=== PATIENT | male | born 1975 | race Caucasian/White ===

== ENCOUNTER 2019-12-19 10:12 | Outpatient (CLI) | payer BC, SELFPAY ==
[2019-12-19 11:39] LABS: Alanine Aminotransferase 52 U/L (4-50); Albumin Level 4.2 g/dL (3.5-5.1); Alkaline Phosphatase 88 U/L (38-126); Aspartate Amino Transferase 35 U/L (17-59); Bilirubin,Total 0.6 mg/dL (0.2-1.3); Blood Urea Nitrogen 10 mg/dL (9-20); Calcium 9.7 mg/dL (8.4-10.2); Carbon Dioxide 32 mmol/L (22-30); Chloride 98 mmol/L (98-107); Cholesterol 193 mg/dL (0-200); Estimated Glomerular Filt Rate > 60; Glucose 93 mg/dL (75-110); HDL Direct 54 mg/dL; Potassium 4.5 mmol/L (3.4-5.0); Sodium 141 mmol/L (137-145); Triglycerides 73 mg/dL (<150)
[2019-12-19 11:50] LABS: LDL Cholesterol Direct 115 mg/dL
== END 2019-12-19 10:13 | disposition home or self-care (01) ==
PROVIDERS: PCP Internal Medicine; Visit Provider Nurse Practitioner
DX: E78.5 Hyperlipidemia, unspecified (principal)
CPT/HCPCS: 36415; 80053; 80061

== ENCOUNTER 2019-12-29 16:57 | Emergency (ER) | payer BC, SELFPAY ==
--- NOTE | ~2019-12-29 | XR_ITS ---
EXAMINATION: XR knee RT min 4V EXAM DATE: 12/29/2019 18:38 INDICATION: Sudden onset anterior swelling. TECHNIQUE: Right knee frontal, crosstable lateral, orthogonal oblique projections for interpretation . There is no prior study for comparison. FINDINGS: No evidence osteochondral defect or joint body in the right knee joint. There are no acut e fractures or dislocations identified. There is no subcutaneous gas. Large well-circumscribed stefano on of soft tissue or fluid density anterior to the tibial tuberosity and inferior half of the patella r tendon. Suspect that there is some intervening fat density insinuating within this. Given how well circumscribed this could be fluid within the infrapatellar bursa. Given the history provided most acu te blood products would explain sudden onset of this. Radiographically differential diagnosis include s other loculated fluid collection or abscess. Please clinically correlate. There are no radiopaque foreign bodies. IMPRESSION: Focal anterior ovoid soft tissue swelling of swelling, could be distended infrapatellar b ursal hematoma given appearance and the history provided. Please clinically correlate. Follow up as i ndicated. Reviewed, dictated and finalized at location A. LAY SCREEN FABRICATOR IMPRESSION: Focal anterior ovoid soft tissue swelling of swelling, could be dis tended infrapatellar bursal hematoma given appearance and the history provided. Please clinically correlate. Follow up as indicated.
[2019-12-29 17:39] VITALS: BP 116/74; PULSE 74; RESP 20; TEMP 36.9; O2SAT 99
--- NOTE | 2019-12-29 18:14 | ED.GENADULT ---
HPI - General Adult General Chief complaint: Extremity Problem,Nontraumatic Stated complaint: lump below r/knee Time Seen by Provider: 12/29/19 18:11 Source: patient and RN notes reviewed Mode of arrival: ambulatory Limitations: no limitations History of Present Illness HPI narrative: 44-year-old male presents with complains of pain and swelling below right anterior knee for 1 day. No treatment. No known injury. 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 Pain and swelling started approximately 1 hour after working per Anderson. No radiation of pain. No numbness or tingling, or bleeding. No blood thinners. No loss of mobility. Exacerbating factors consist of bending and straightening knee. No fever or chills. Denies nausea, vomiting, and abdominal pain. Remains active. Some parts of this dictation were generated by voice recognition software and may contain typographical and/or grammatical inaccuracies. Related Data Home Medications Medication Instructions Recorded Confirmed albuterol sulfate 90 mcg/actuation 2 puff INHALATION Q4-6H PRN gm 12/02/19 12/29/19 aerosol inhaler montelukast 10 mg tablet 10 mg PO DAILY 12/02/19 12/29/19 topiramate 25 mg tablet 25 mg PO BID 12/02/19 12/29/19 Allergies Allergy/AdvReac Type Severity Reaction Status Date / Time No Known Allergies Allergy Verified 12/29/19 17:46 Review of Systems Review of Systems: Narrative: CONSTITUTIONAL: Denies fever, chills, sweats. EYES: Denies visual changes, redness, discharge. ENT: Denies rhinorrhea, congestion, sore throat, otalgia. CARDIOVASCULAR: Denies chest pain, palpitations, edema. RESPIRATORY: Denies dyspnea, wheezing, cough. GASTROINTESTINAL: Denies abdominal pain, nausea, vomiting, diarrhea. GENITOURINARY: Denies dysuria, hematuria, abnormal discharge SKIN: Denies rash or itching. MUSCULOSKELETAL: Denies acute back pain or myalgia. Complains of pain and swelling below Right knee. Denies drainage. NEUROLOGIC: Denies numbness, or focal weakness. PSYCHIATRIC: Denies anxiety or depression. All other systems reviewed & are unremarkable except as noted in HPI and below. [facility] Past Medical History Medical History (Updated 12/30/19 @ 00:00 by Background Daemon) Attention-deficit hyperactivity disorder, unspecified type Headache disorder Hemangioma Hyperlipidemia, unspecified Melena Neuropathic pain Paresthesia Personal history of other mental and behavioral disorders Tremor Unspecified asthma, uncomplicated Surgical History Surgical History H/O: vasectomy Family History Family History Mother Asthma Sibling Patient's brother is in good health Other Diabetes mellitus Family history of allergic disorder Family history of autism Family history of cardiovascular disease Family history of malignant neoplasm Hypertension Social History Social History (Updated 12/29/19 @ 18:29 by LUPE Borden) Smoking status: Never smoker Second hand tobacco smoke exposure: No Alcohol intake: never Substance use: never Living arrangements: with family Occupation/Education: occupation Gender identity (if verbalized by the patient): Male Comments At time of signature, agree with nurse past medical, surgical, social, and family history. There is no relevant family history pertinent to the presenting complaint. Exam Narrative: Exam Narrative: GENERAL: This is a well-nourished, well-developed patient, in no apparent distress. Talks in full sentences and ambulates with RT antalgic gait without dyspnea. HEAD: normocephalic, atraumatic. EYES: PERRL. Sclera clear/white. Vision is grossly intact. CARDIOVASCULAR: Regular rate and rhythm without murmurs, gallops, or rubs. RESPIRATORY: Clear to auscultation. Breath sounds equal bilaterally. No wh
== END 2019-12-29 19:23 | disposition home or self-care (01) ==
PROVIDERS: Emergency Provider Nurse Practitioner Family; PCP Internal Medicine
DX: M25.461 Effusion, right knee (principal)
CPT/HCPCS: 73564; 99213; G0463

== ENCOUNTER 2020-04-05 07:58 | Outpatient (RCR) | payer BC, SELFPAY ==
[2020-04-05 08:45] LABS: Alanine Aminotransferase 35 U/L (4-50); Albumin Level 4.1 g/dL (3.5-5.1); Alkaline Phosphatase 76 U/L (38-126); Aspartate Amino Transferase 39 U/L (17-59); Bilirubin,Total 0.5 mg/dL (0.2-1.3)
== END 2020-07-04 23:59 | disposition home or self-care (01) ==
LOC: ANHLAB 07:58
PROVIDERS: PCP Internal Medicine; Visit Provider Internal Medicine
DX: Z51.81 Encounter for therapeutic drug level monitoring (principal); Z79.899 Other long term (current) drug therapy
CPT/HCPCS: 36415; 80076

== ENCOUNTER 2020-04-16 09:33 | Outpatient (CLI) | payer BC, SELFPAY ==
[2020-04-16 10:00] LABS: Alanine Aminotransferase 33 U/L (4-50); Albumin Level 4.4 g/dL (3.5-5.1); Alkaline Phosphatase 78 U/L (38-126); Aspartate Amino Transferase 30 U/L (17-59); Bilirubin,Total 0.8 mg/dL (0.2-1.3)
== END 2020-04-16 09:34 | disposition home or self-care (01) ==
PROVIDERS: PCP Internal Medicine; Visit Provider Internal Medicine
DX: Z51.81 Encounter for therapeutic drug level monitoring (principal)
CPT/HCPCS: 36415; 80076

== ENCOUNTER → 2020-12-27 08:16 | Outpatient (CLI) | payer BC, SELFPAY ==
[2020-12-27 18:21] LABS: SARS-CoV-2 RNA PCR Negative
== END ==
PROVIDERS: PCP Internal Medicine; Visit Provider Nurse Practitioner
DX: R68.89 Other general symptoms and signs (principal); Z20.822 Contact with and (suspected) exposure to COVID-19
CPT/HCPCS: C9803; U0003; U0005

== ENCOUNTER 2021-01-12 08:35 | Outpatient (CLI) | payer BC, SELFPAY ==
[2021-01-12 09:12] LABS: Calcium 9.1 mg/dL (8.4-10.2); Chloride 105 mmol/L (98-107); Estimated Glomerular Filt Rate > 60; Sodium 140 mmol/L (137-145); Triglycerides 78 mg/dL (<150)
[2021-01-12 10:38] LABS: Anion Gap 6 mmol/L (8-16); Blood Urea Nitrogen 19 mg/dL (9-20); Carbon Dioxide 29 mmol/L (22-30); Cholesterol 198 mg/dL (0-200); Glucose 96 mg/dL (75-110); HDL Direct 47 mg/dL; Potassium 4.1 mmol/L (3.4-5.0)
[2021-01-12 10:48] LABS: LDL Cholesterol Direct 125 mg/dL
== END 2021-01-12 08:36 | disposition home or self-care (01) ==
PROVIDERS: PCP Internal Medicine; Visit Provider Internal Medicine
DX: Z13.6 Encounter for screening for cardiovascular disorders (principal); E78.5 Hyperlipidemia, unspecified
CPT/HCPCS: 36415; 80048; 80061

== ENCOUNTER 2021-01-14 09:00 | Outpatient (CLI) | payer BC, SELFPAY ==
--- NOTE | ~2021-01-14 | CT_ITS ---
EXAMINATION: CT sinus wo con EXAM DATE: 01/14/2021 09:23 INDICATION: J32.9 - Chronic sinusitis, unspecified chronic sinusitis unspecified. Sinus pain around n ose and eyes for 2-3 months. TECHNIQUE: Spiral CT of the sinuses was acquired in the axial plane. Coronal and sagittal reformatte d images were also reviewed. The dose-length product (DLP) for this examination was 295.93 mGy-cm. Iterative reconstruction (ASIR) was used as dose reduction technique. Correlation is made to head CT 10/12/2018. FINDINGS: The sinuses are normally developed. Minimal bilateral maxillary sinus mucoperiosteal thi ckening. The ostiomeatal units are patent. There is no sinus wall thickening. Small bilateral conc henao bullosa. There is moderate S-shaped nasal septal deviation. The mastoid air cells and middle ears are well aerated. External auditory canals are patent. The orbits and visualized soft tissues ar e unremarkable. IMPRESSION: 1. Moderate nasal septal deviation. 2. Minimal maxillary mucoperiosteal thickening. Reviewed, dictated and finalized at location A.
== END 2021-01-14 09:01 | disposition home or self-care (01) ==
LOC: ANHIMG 09:02
PROVIDERS: PCP Internal Medicine; Visit Provider Nurse Practitioner
DX: J32.9 Chronic sinusitis, unspecified (principal); J34.2 Deviated nasal septum
CPT/HCPCS: 70486

== ENCOUNTER → 2021-11-28 08:15 | Outpatient (CLI) | payer BC, SELFPAY ==
[2021-11-28 12:45] LABS: Influenza A QL RT-PCR Negative (Negative); Influenza B QL RT-PCR Negative (Negative); SARS-CoV-2 RNA PCR Negative
== END ==
PROVIDERS: PCP Internal Medicine; Visit Provider Internal Medicine
DX: R68.89 Other general symptoms and signs (principal); Z20.822 Contact with and (suspected) exposure to COVID-19
CPT/HCPCS: 87502; C9803; U0003; U0005

== ENCOUNTER 2022-01-18 11:17 | Emergency (ER) | payer BC, SELFPAY ==
[2022-01-18 11:34] VITALS: BP 109/60; PULSE 79; RESP 18; TEMP 36.6; O2SAT 99
--- NOTE | 2022-01-18 12:12 | ED.EAR ---
HPI - Ear Problem General Chief complaint: Ear Stated complaint: denominational pain Time Seen by Provider: 01/18/22 12:13 Source: patient, RN notes reviewed and old records reviewed Mode of arrival: ambulatory Limitations: no limitations History of Present Illness HPI Narrative: 46-year-old male who presents to [facility] with complaints of left sided sinus pressure pain with pressure behind his left eye since early this morning and left frontal headache. He reports that he took Fioricet at 0330 and then one Ibuprofen at 0900. He states that these medications did not help his discomfort, states pain is not like his normal migraines which he takes daily Topamax. He states that he has had pressure to his left ear since the weekend but started having pain to his left ear since this morning. He denies any fevers, cough or any shortness of breath, denies any chills or sweats or any body aches, states no sore throat pain. MD Complaint: ear pain Location: left ear Related Data Home Medications Medication Instructions Recorded Confirmed albuterol sulfate 90 mcg/actuation 2 puff INHALATION Q4-6H PRN gm 12/02/19 01/18/22 aerosol inhaler Allergies Allergy/AdvReac Type Severity Reaction Status Date / Time No Known Allergies Allergy Verified 01/18/22 12:07 Review of Systems Review of Systems: CONSTITUTIONAL: Denies fever, chills, or sweats. EYES: Denies visual changes, redness, or discharge. ENT: clear rhinorrhea, congestion, no sore throat,left ear otalgia. CARDIOVASCULAR: Denies chest pain, palpitations, or edema. RESPIRATORY: Denies cough or dyspnea. GASTROINTESTINAL: Denies abdominal pain, nausea, vomiting, or diarrhea. GENITOURINARY: Denies dysuria or hematuria. SKIN: Denies rash or itching. MUSCULOSKELETAL: Denies back pain, joint pain, or myalgia. NEUROLOGIC: positive for frontal headache left side and behind left eye, denies any numbness, or weakness. PSYCHIATRIC: Positive for history of anxiety or depression. All systems reviewed & are unremarkable except as noted in HPI and below PMFSH Past Medical History Medical History Attention-deficit hyperactivity disorder, unspecified type Headache disorder Hemangioma Hyperlipidemia, unspecified Melena Neuropathic pain Paresthesia Personal history of other mental and behavioral disorders Tremor Unspecified asthma, uncomplicated Surgical History Surgical History H/O: vasectomy Family History Family History Mother Asthma Mitral and aortic heart valve diseases, unspecified Acid reflux Hypertension Iron deficiency Sibling Patient's brother is in good health Father Spleen anomaly Cirrhosis of liver Hypertension Acid reflux Diabetes mellitus Asthma Other Family history of allergic disorder Family history of autism Family history of cardiovascular disease Family history of malignant neoplasm Social History Social History Smoking status: Never smoker Second hand tobacco smoke exposure: No Alcohol intake: never Substance use: never Substance use type: does not use Gender identity (if verbalized by the patient): Male Comments At time of signature, agree with nursing past medical, surgical, social and family history. There is no relevant family history pertinent to the presenting complaint Exam Narrative: GENERAL: Well-appearing, well-nourished, and in no acute distress. HEAD: Normocephalic, atraumatic. EYES: PERRLA and EOMI. ENT: Nares red and swollen with clear rhinorrhea no epistaxis. Mucous membranes moist.Right TM normal with good light reflex, Left ear impacted cerumen but once cleansed TM normal with good light reflex and no redness to ear canal. Throat red with no lesions or exudates no tonsil enlargem
== END 2022-01-18 12:36 | disposition home or self-care (01) ==
PROVIDERS: Emergency Provider Registered Nurse; PCP Internal Medicine
DX: H61.22 Impacted cerumen, left ear (principal); J06.9 Acute upper respiratory infection, unspecified; E78.5 Hyperlipidemia, unspecified; J45.909 Unspecified asthma, uncomplicated
CPT/HCPCS: 69210; 99212; A9270; G0463

== ENCOUNTER 2022-01-31 08:32 | Outpatient (CLI) | payer BC, SELFPAY ==
[2022-01-31 09:10] LABS: Alanine Aminotransferase 57 U/L (4-50); Albumin Level 4.1 g/dL (3.5-5.1); Alkaline Phosphatase 83 U/L (38-126); Anion Gap 4 mmol/L (8-16); Aspartate Amino Transferase 44 U/L (17-59); Bilirubin,Total 0.6 mg/dL (0.2-1.3); Blood Urea Nitrogen 17 mg/dL (9-20); Calcium 9.4 mg/dL (8.4-10.2); Carbon Dioxide 32 mmol/L (22-30); Chloride 103 mmol/L (98-107); Cholesterol 228 mg/dL (0-200); Estimated Glomerular Filt Rate > 60; Glucose 104 mg/dL (65-110); HDL Direct 50 mg/dL; Sodium 139 mmol/L (137-145); Triglycerides 72 mg/dL (<150)
[2022-01-31 09:21] LABS: LDL Cholesterol Direct 124 mg/dL
== END 2022-01-31 08:33 | disposition home or self-care (01) ==
PROVIDERS: PCP Internal Medicine; Visit Provider Internal Medicine
DX: Z00.00 Encounter for general adult medical examination without abnormal findings (principal); J34.89 Other specified disorders of nose and nasal sinuses; E78.5 Hyperlipidemia, unspecified
CPT/HCPCS: 36415; 80053; 80061

== ENCOUNTER 2022-10-06 00:29 | Day surgery (SDC) | payer BC, SELFPAY ==
[2022-09-28 14:14] VITALS: BMI 21.9
[2022-10-06 08:05] VITALS: BP 131/75; PULSE 87; RESP 18; TEMP 36.6; O2SAT 100; BMI 19.4
[2022-10-06] MEDS: LACTATED RINGERS 1,000 ML 150 ML IV CONT (08:22)
[2022-10-06] MEDS: ACETAMINOPHEN 325 MG TABLET 650 MG PO (08:35)
--- NOTE | 2022-10-06 08:46 | WPDANESEPPF ---
Anes - Initial Pre Proc Eval Procedure: Operation Date: 10/06/22 09:00 Proposed Procedures p Screening Colonoscopy - Ja Barnes MD Date/Time: 10/06/22 08:46 Surgeon: Ja Barnes MD Pre Op Diagnosis: neoplasm screening Patient Data Age: 46 Gender: M Height: 1.93 m Weight: 72.4 kg Last Vital Signs Temp 97.8 F 10/06/22 08:05 Pulse 87 10/06/22 08:05 Resp 18 10/06/22 08:05 BP 131/75 10/06/22 08:05 Pulse Ox 100 10/06/22 08:05 O2 Del Method Room Air 10/06/22 08:05 Allergies Allergy/AdvReac Type Severity Reaction Status Date / Time No Known Allergies Allergy Verified 10/06/22 08:11 Home Medications Medication Instructions Recorded Confirmed Type albuterol sulfate 90 mcg/actuation 2 puff inhalation Q4-6H PRN 02/03/22 10/06/22 Rx aerosol inhaler (ProAir HFA) Wheezing #8.5 grams montelukast 10 mg tablet 10 mg PO DAILY #90 tabs 02/03/22 10/06/22 Rx butalbital 50 mg-acetaminophen 300 1 cap PO Q6H PRN pain #20 caps 09/19/22 10/06/22 Rx mg-caffeine 40 mg-codeine 30 mg cap (Fioricet with Codeine) Patient hx anesthesia problems: none Family hx anesthesia problems: none Results Review: All pre-operative results and documents have been reviewed as part of the pre-operative evaluation. [facility] Past Medical History Medical History Attention-deficit hyperactivity disorder, unspecified type Headache disorder Hemangioma Hyperlipidemia, unspecified Melena Neuropathic pain Paresthesia Personal history of other mental and behavioral disorders Tremor Unspecified asthma, uncomplicated Surgical History Surgical History H/O: vasectomy Family History Family History Mother Asthma Mitral and aortic heart valve diseases, unspecified Acid reflux Hypertension Iron deficiency Sibling Patient's brother is in good health Father Spleen anomaly Cirrhosis of liver Hypertension Acid reflux Diabetes mellitus Asthma Other Family history of allergic disorder Family history of autism Family history of cardiovascular disease Family history of malignant neoplasm Social History Social History Smoking status: Never smoker Second hand tobacco smoke exposure: No Alcohol intake: current Alcohol use details: rarely Substance use: never Substance use type: does not use Living arrangements: alone Gender identity (if verbalized by the patient): Male Spiritual care concerns: No Anes - Eval Final PreProcedure Day of Procedure 10/06/22 08:46 Patient weight: normal Heart: regular rate and rhythm Lungs: clear to auscultation Airway: Mallampati scale class II Neurological: alert and oriented Last oral intake: >/= 8 hours ASA classification: II Emergent: no Anesthetic plan: proceed Anesthesia type and monitoring: general GIVS and standard monitoring Results Review: All pre-operative results and documents have been reviewed as part of the pre-operative evaluation. Informed Consent: The patient's anesthetic plan and its attendant risks and benefits were discussed with the patient/family/POA. Questions were solicited and answers provided to the satisfaction of the patient/family/POA.
--- NOTE | 2022-10-06 08:47 | PM.HPGS ---
History of Present Illness History of Present Illness Consent: Risks, benefits, and alternatives have been discussed and questions answered. Patient agrees to proceed with procedure. Chief complaint: neoplasm screening Narrative: Anderson Garcia is a 46 year old male here for first screening colonoscopy Review of Systems Constitutional: Constitutional: Denies headache(s) and Denies weakness Eyes: Eyes: Denies blurry vision ENT: Reports Normal hearing present, Denies headache(s) and Denies neck pain Cardiovascular: Cardiovascular: Denies chest pain and Denies dyspnea Respiratory: Respiratory: Denies dyspnea Gastrointestinal: Gastrointestinal: Reports no additional gastrointestinal complaints Genitourinary: Genitourinary: Denies dysuria Musculoskeletal: Musculoskeletal: Denies neck pain Integumentary/Breasts: Skin/Breast: Denies dry skin Neurologic: Reports Normal hearing present, Denies headache(s) and Denies weakness Psychiatric: Psychiatric: Denies anxiety Endocrine: Endocrine: Denies change in body appearance Hematologic/Lymphatic: Hematologic/Lymphatic: Denies easy bleeding Allergic/Immunologic: Allergic/Immunologic: Denies urticaria PMFSH Past Medical History Medical History (Updated 10/06/22 @ 08:47 by Ja Barnes MD) Attention-deficit hyperactivity disorder, unspecified type Colon cancer screening Headache disorder Hemangioma Hyperlipidemia, unspecified Melena Neuropathic pain Paresthesia Personal history of other mental and behavioral disorders Tremor Unspecified asthma, uncomplicated Surgical History Surgical History H/O: vasectomy Family History Family History Mother Asthma Mitral and aortic heart valve diseases, unspecified Acid reflux Hypertension Iron deficiency Sibling Patient's brother is in good health Father Spleen anomaly Cirrhosis of liver Hypertension Acid reflux Diabetes mellitus Asthma Other Family history of allergic disorder Family history of autism Family history of cardiovascular disease Family history of malignant neoplasm Social History Social History Smoking status: Never smoker Second hand tobacco smoke exposure: No Alcohol intake: current Alcohol use details: rarely Substance use: never Substance use type: does not use Living arrangements: alone Gender identity (if verbalized by the patient): Male Spiritual care concerns: No Meds Home Medications and Allergies Home Medications Medication Instructions Recorded Confirmed Type albuterol sulfate 90 mcg/actuation 2 puff inhalation Q4-6H PRN 02/03/22 10/06/22 Rx aerosol inhaler (ProAir HFA) Wheezing #8.5 grams montelukast 10 mg tablet 10 mg PO DAILY #90 tabs 02/03/22 10/06/22 Rx butalbital 50 mg-acetaminophen 300 1 cap PO Q6H PRN pain #20 caps 09/19/22 10/06/22 Rx mg-caffeine 40 mg-codeine 30 mg cap (Fioricet with Codeine) Allergies Allergy/AdvReac Type Severity Reaction Status Date / Time No Known Allergies Allergy Verified 10/06/22 08:11 Vital Signs Vital Signs - 24 hr 10/06/22 08:05 Temperature 97.8 F Pulse Rate 87 Respiratory Rate 18 Blood Pressure 131/75 Pulse Oximetry 100 Oxygen Delivery Room Air Exam Const: General: comfortable and no acute distress HENMT: Face/Nose/Sinus: Normal nares present Eyes: General: appearance normal, both eyes and all related structures Neck: Neck: no JVD Resp: Auscultation: clear to auscultation bilaterally Cardio: Rate: regular rate Rhythm: regular rhythm GI: Inspection: non-distended GI Palp: Yes Soft to palpation Skin: General skin exam: normal color Neuro: General: gait normal Speech: normal speech Extrem: General: normal to inspection Psych: Mental Status: mental stat
[2022-10-06 09:06] VITALS: BP 103/63; PULSE 85; RESP 17; O2SAT 97
[2022-10-06 09:16] VITALS: BP 103/70; PULSE 81; RESP 19; O2SAT 94
[2022-10-06 09:26] VITALS: BP 104/71; PULSE 76; RESP 18; O2SAT 96
== END 2022-10-06 09:43 | disposition home or self-care (01) ==
PROVIDERS: PCP Internal Medicine; Visit Provider Internal Medicine Gastroenterology
PROC: 0DJD8ZZ Inspection of Lower Intestinal Tract, Via Natural or Artificial Opening Endoscopic (ICD-10-PCS; CPT 45378; principal; 2022-10-06 09:00)
DX: Z12.11 Encounter for screening for malignant neoplasm of colon (principal); K57.30 Diverticulosis of large intestine without perforation or abscess without bleeding; K64.8 Other hemorrhoids; E78.5 Hyperlipidemia, unspecified; F90.9 Attention-deficit hyperactivity disorder, unspecified type; J45.909 Unspecified asthma, uncomplicated; Z79.51 Long term (current) use of inhaled steroids
CPT/HCPCS: 45378; A9270; J2704; J7120

== ENCOUNTER → 2022-12-15 12:02 | Outpatient (CLI) | payer BC, SELFPAY ==
--- NOTE | ~2022-12-15 | XR_ITS ---
EXAMINATION: XR chest 2V 12/15/2022 12:15 INDICATION: Cough PROCEDURE: PA and lateral views of the chest COMPARISON: 10/12/2018 FINDINGS: The lungs are clear. The cardiomediastinal silhouette is within normal limits. There are no pleural effusions. There is no pneumothorax suspected. There are a few small calcified granuloma s in the lungs. There is a focal asymmetry in the right upper thorax of uncertain etiology. Recommend correlation with CT chest. IMPRESSION: 1: NO ACUTE CARDIOPULMONARY DISEASE. 2: Focal asymmetry right apex. Correlation with CT chest recommended to exclude parenchymal nodule. Reviewed, dictated and finalized at location A. RETE BUSTER OPERATOR IMPRESSION: 1: NO ACUTE CARDIOPULMONARY DISEASE. 2: Focal asymmetry right apex. Correlation with CT chest recommended to exclud e parenchymal nodule.
== END ==
PROVIDERS: PCP Nurse Practitioner Family; Visit Provider Nurse Practitioner Family
DX: R05.9 Cough, unspecified (principal)
CPT/HCPCS: 71046

== ENCOUNTER 2022-12-29 09:41 | Outpatient (CLI) | payer BC, SELFPAY ==
--- NOTE | ~2022-12-29 | CT_ITS ---
EXAMINATION:CT chest high resolution wo co DATE: 12/29/2022 10:11 INDICATION: Abnormal chest radiograph. TECHNIQUE: Computed tomography (CT) of the chest was performed without intravenous contrast. Automate d exposure control and iterative reconstruction technique were employed. The dose-length product (DLP ) was 229.75 mGy-cm. COMPARISON: Chest 2 views 12/15/2022 FINDINGS: There is mild scarring at the lung apices. There is a 3 mm nodule in right upper lobe, like ly benign. A calcified right lung nodule and calcified right hilar and mediastinal lymph nodes are co nsistent with old granulomatous disease. No pleural effusion. The heart size is normal. No pericardia l effusion. There is a 2 mm stone in right kidney. Partially visualized is a 2.4 cm cyst in left kidn ey. There is a 9.2 cm mass measuring soft tissue attenuation in left upper quadrant of the abdomen. T he mass abuts the left kidney and left adrenal gland. There is thoracic kyphosis and mild spondylosis . IMPRESSION: 1. 9.3 cm mass in left upper quadrant of the abdomen abutting the adrenal gland and kidney. This find ing may be benign or malignant. Abdomen MRI without and with contrast is recommended. 2. Mild scarring at the lung apices correlating with the chest radiograph abnormality. Reviewed, dictated and finalized at location A. PATIONAL THERAPY ASST IMPRESSION: 1. 9.3 cm mass in left upper quadrant of the abdomen abutting the adrenal gland and kidney. This finding may be benign or malignant. Abdomen MRI without and w ith contrast is recommended. 2. Mild scarring at the lung apices correlating with the chest radiograph abnor mality.
== END 2022-12-29 09:42 | disposition home or self-care (01) ==
PROVIDERS: PCP Nurse Practitioner Family; Visit Provider Nurse Practitioner Family
DX: R91.8 Other nonspecific abnormal finding of lung field (principal); R19.02 Left upper quadrant abdominal swelling, mass and lump
CPT/HCPCS: 71250

== ENCOUNTER 2023-01-23 06:59 | Outpatient (CLI) | payer BC, SELFPAY ==
[2023-01-23 07:36] LABS: Alanine Aminotransferase 38 U/L (6-50); Alkaline Phosphatase 66 U/L (38-126); Anion Gap 6 mmol/L (8-16); Aspartate Amino Transferase 35 U/L (17-59); Bilirubin,Total 0.7 mg/dL (0.2-1.3); Blood Urea Nitrogen 15 mg/dL (9-20); Carbon Dioxide 32 mmol/L (22-30); Chloride 103 mmol/L (98-107); Cholesterol 197 mg/dL (0-200); Estimated Glomerular Filt Rate > 60; Glucose 99 mg/dL (65-110); HDL Direct 51 mg/dL; Potassium 3.9 mmol/L (3.4-5.0); Sodium 141 mmol/L (137-145); Triglycerides 71 mg/dL (<150)
[2023-01-23 07:47] LABS: LDL Cholesterol Direct 114 mg/dL
== END 2023-01-23 07:00 | disposition home or self-care (01) ==
PROVIDERS: PCP Internal Medicine; Visit Provider Internal Medicine
DX: E78.5 Hyperlipidemia, unspecified (principal); Z13.6 Encounter for screening for cardiovascular disorders
CPT/HCPCS: 36415; 80053; 80061

== ENCOUNTER 2023-02-02 06:42 | Outpatient (CLI) | payer BC, SELFPAY ==
--- NOTE | ~2023-02-02 | MR_ITS ---
EXAMINATION: MR abdomen wo/w con INDICATION: Left upper quadrant mass on CT TECHNIQUE: Coronal SSFSE ARC, WATER:coronal LAVA-FLEX, Coronal 2D FIESTA FatSat, Axial SSFSE BH ARC, Axial 3D DualEcho BH, Axial SSFSE-IR, Axial DWI b=500, Axial 2D FIESTA FatSat, pre and dynamic postco ntrast Axial LAVA ARC, postcontrast Coronal In and Opposed phase LAVA FLEX COMPARISON: CT, 01/18/2023 CONTRAST: Multihance, 15 cc FINDINGS: There is an 8.4 x 8.2 cm T1 isointense, T2 isointense mass in the left upper quadrant. Ther e is mild, diffuse uniform enhancement after contrast administration. The mass abuts the stomach, ramirez creas, left adrenal gland, spleen, and left kidney. The liver, spleen, pancreas, gallbladder, and right adrenal gland appear normal. Cysts of the kidneys measure up to 2.1 cm on the left. No pathologically enlarged abdominal lymph nodes are identified. T here are no dilated loops of bowel. IMPRESSION: 1. Left upper quadrant mass as described above with broad differential given its location including g astrointestinal stromal tumor, lymphoma, adrenal tumor such as adrenal cortical carcinoma, or less li james kidney neoplasm. CT-guided biopsy is recommended. Reviewed, dictated and finalized at location B. IMPRESSION: 1. Left upper quadrant mass as described above with broad differential given it s location including gastrointestinal stromal tumor, lymphoma, adrenal tumor nicholson ch as adrenal cortical carcinoma, or less likely kidney neoplasm. CT-guided bio psy is recommended.
== END 2023-02-02 06:43 | disposition home or self-care (01) ==
PROVIDERS: PCP Internal Medicine; Visit Provider Internal Medicine
DX: R19.02 Left upper quadrant abdominal swelling, mass and lump (principal)
CPT/HCPCS: 74183; A9577

== ENCOUNTER 2023-03-02 03:50 | Outpatient (CLI) | payer BC, SELFPAY ==
[2023-02-22 12:35] VITALS: BMI 20.2
--- NOTE | 2023-02-22 12:36 | PC.NURSE ---
Pre Radiology instructions Report to the outpatient [facility] on date 03/02/23 at time 0900 for procedure Time: 1100. YOU MAY BE MONITORED AT HOSPITAL FOR UP TO 4 HOURS AFTER YOUR PROCEDURE. A visitor will be allowed to accompany the patient into the hospital. You and your visitor will be asked to self-screen and do not enter if you have any COVID symptoms. A mask is OPTIONAL within the hospital. Patients are to have no food or drink 6 hours prior to procedure time Driving will be restricted after the procedure, you must have a person to drive you home. Labs will be drawn in preop area and once reviewed, you will be taken to radiology area for procedure. When the procedure is completed, you will be taken to outpatient where you will be monitored for several hours. You may have one visitor in this area. Other than holding anti-coagulants, patient may take other medication(s) as scheduled. Prior to your appointment date patients are instructed to hold anti-coagulants after discussing with ordering provider to stop. If unable to discontinue anti-coagulants please notify radiologist. ? No aspirin or warfarin (Coumadin) for 7 days prior to the procedure. ? No clopidogrel (Plavix), ticagrelor (Brilinta), prasugrel (Effient) or dabigatran (Pradaxa) for 5 days prior to the procedure. ? No rivaroxaban (Xarelto), apixaban (Eliquis), dipyridamole (Aggrenox or Persantine) or cilostazol (Pletal) for 2 days prior to the procedure. Medications to discontinue per physician: N/A Date to take last dose: N/A Please leave all valuables, including medications, at home the day of procedure. The hospital will not accept responsibility for valuables. Wear comfortable, loose fitting clothing.? Follow any additional instructions given to you from ordering provider. Telephone instructions given to PT - GEORGETTE COOL and asked if any additional questions and then verbalized understanding. Patient advised to call scheduling provider office or registration scheduling [phone] if any additional questions.
[2023-03-02] VITALS (11 sets, daily range): BP systolic 99–120; BP diastolic 47–71; PULSE 63–81; RESP 12–14; TEMP 36.4; O2SAT 98–100
--- NOTE | ~2023-03-02 | CT_ITS ---
EXAMINATION: CT biopsy abdomen percutaneous DATE: 03/02/2023 11:29 INDICATION: Abdominal mass. TECHNIQUE: The procedure including the risks, benefits, and alternatives was discussed with the patie nt. Risks discussed included bleeding and infection. The patient verbalized understanding of the risk s and agreed to proceed. The skin overlying the liver was prepped and draped in usual sterile fashio n. Anesthetic was administered with 1% lidocaine subcutaneously. A 16 gauge outer needle was advanc ed under CT guidance into the left abdominal mass. An 18 gauge core biopsy needle was then used to ob tain 6 core biopsy specimens. The mA was adjusted according to patient size. Iterative reconstruction technique was employed. The dose-length product was 119.64 mGy-cm. The needle was removed and the en try site was cleaned and dressed. There were no immediate complications. FINDINGS: CT images demonstrate the outer needle tip adjacent to a 9.3 cm mass in left abdomen. IMPRESSION: 1. CT-guided core needle biopsy of a 9.3 cm mass in left abdomen. Reviewed, dictated and finalized at location A.
[2023-03-02 09:32] LABS: Hematocrit 44.7 % (42.0-52.0); Mean Corpuscular HGB Conc 33.6 g/dl (32-36); Mean Corpuscular Hemoglobin 30.7 pg (26-34); Mean Corpuscular Volume 91.4 fl (80-100); Mean Platelet Volume 9.4 fl (7.4-10.4); Platelet Count Result 149 k/mm3 (150-375); Red Blood Count 4.89 M/mm3 (4.6-6.20); Red Cell Distribution Width 12.1 % (11.5-14.5); White Blood Count 4.7 K/mm3 (4.5-10.0)
[2023-03-02 09:46] LABS: Prothrombin Time 13.8 Seconds (11.1-14.7)
--- NOTE | 2023-03-02 12:39 | SUR.PHASEII ---
[address] adler about taking medication for headache, he's ok with patient taking it. 1240 patient took butalbital/caffeine/codeine/acetaminophen medication
== END 2023-03-02 15:40 | disposition home or self-care (01) ==
PROVIDERS: PCP Internal Medicine; Referring Provider Nurse Practitioner; Visit Provider Radiology Diagnostic Radiology
PROC: BW20ZZZ Computerized Tomography (CT Scan) of Abdomen (ICD-10-PCS; CPT 77012; principal; 2023-03-02 11:00)
DX: D44.10 Neoplasm of uncertain behavior of unspecified adrenal gland (principal)
CPT/HCPCS: 36415; 49180; 77012; 85027; 85610; 88305; 88342

== ENCOUNTER 2023-03-03 20:30 | Emergency (ER) | payer BC, SELFPAY ==
[2023-03-03] VITALS (16 sets, daily range): BP systolic 122–144; BP diastolic 71–80; PULSE 95–119; RESP 14–27; TEMP 36.6–37.7; O2SAT 96–100
--- NOTE | ~2023-03-03 | XR_ITS ---
EXAMINATION: XR chest 2V DATE: 03/03/2023 21:30 INDICATION: Left upper quadrant abdominal mass. Fever. TECHNIQUE: Frontal and lateral views of the chest were obtained. COMPARISON: Chest 2 views 12/15/2022, chest CT 12/29/2022 FINDINGS: There is mild scarring at the lung apices. No pleural effusion or pneumothorax. The heart s ize is normal. IMPRESSION: 1. Mild scarring at the lung apices. Reviewed, dictated and finalized at location A.
--- NOTE | ~2023-03-03 | CT_ITS ---
EXAMINATION: CT abdomen pelvis w con DATE: 03/03/2023 22:16 INDICATION: Fever. Abnormal liver function tests. TECHNIQUE: Computed tomography (CT) of the abdomen and pelvis was performed with 100 mL Omnipaque 350 intravenous contrast. Automated exposure control and iterative reconstruction technique were employe d. The dose-length product was 279.92 mGy-cm. COMPARISON: Abdomen MRI 02/02/2023 FINDINGS: The visualized portions of the lung bases demonstrate mild atelectasis. No pleural effusion . The heart size is normal. No pericardial effusion. The liver, gallbladder, spleen, pancreas, and ad renal glands are normal. There are cysts in the kidneys measuring up to 2.5 cm on the left. The prost ate is mildly enlarged. There are no dilated loops of bowel. The appendix is normal. There is a 9.9 x 8.9 cm mass in left abdomen measuring mixed attenuation. There is a small volume of hematoma and foc i of gas posterior to the mass from recent biopsy. There is mild thoracic and lumbar spondylosis. IMPRESSION: 1. Stable 9.9 cm mass in left abdomen, consistent with neoplasm. Biopsy results are pending. 2. Small volume of hematoma and foci of gas posterior to the mass from recent biopsy. Reviewed, dictated and finalized at location A. IMPRESSION: 1. Stable 9.9 cm mass in left abdomen, consistent with neoplasm. Biopsy results are pending. 2. Small volume of hematoma and foci of gas posterior to the mass from recent b iopsy.
[2023-03-03 21:33] LABS: Basophils Percent Auto 0.4 % (0.2-1.2); Eosinophils Absolute Auto 0.1 K/mm3 (0-0.3); Eosinophils Percent Auto 1.7 % (0-4.4); Hematocrit 42.7 % (42.0-52.0); Hemoglobin 14.4 g/dL (14.0-18.0); Immature Granulocyte Absolute 0.02 K/mm3 (0.00-0.031); Immature Granulocyte Percent A 0.2 % (0-0.5); Lymphocytes Absolute Auto 1.08 K/mm3 (0.9-3.2); Mean Corpuscular HGB Conc 33.7 g/dl (32-36); Mean Corpuscular Hemoglobin 30.6 pg (26-34); Mean Corpuscular Volume 90.9 fl (80-100); Mean Platelet Volume 9.2 fl (7.4-10.4); Monocytes Absolute Auto 0.5 K/mm3 (0.1-0.6); Monocytes Percent Auto 6.5 % (2.6-8.5); Neutrophils Absolute Auto 6.5 K/mm3 (1.3-6.7); Neutrophils Percent Auto 78.2 % (45.5-73.1); Platelet Count Result 150 k/mm3 (150-375); Red Cell Distribution Width 11.9 % (11.5-14.5); White Blood Count 8.3 K/mm3 (4.5-10.0)
[2023-03-03] MEDS: ACETAMINOPHEN 500 MG TABLET 1000 MG PO (21:34)
[2023-03-03] MEDS: SODIUM CHLORIDE 0.9% IV 1,000 ML 999 ML IV CONT (21:34)
[2023-03-03 21:35] LABS: Alanine Aminotransferase 119 U/L (6-50); Alkaline Phosphatase 167 U/L (38-126); Anion Gap 2 mmol/L (8-16); Bilirubin,Total 1.1 mg/dL (0.2-1.3); Blood Urea Nitrogen 17 mg/dL (9-20); Calcium 8.8 mg/dL (8.4-10.2); Carbon Dioxide 32 mmol/L (22-30); Chloride 100 mmol/L (98-107); Estimated CRCL calculation 103 ml/min; Estimated Glomerular Filt Rate > 60; Glucose 107 mg/dL (65-110); Potassium 3.9 mmol/L (3.4-5.0); Sodium 134 mmol/L (137-145)
[2023-03-03 21:40] LABS: Aspartate Amino Transferase 1498 U/L (17-59)
--- NOTE | 2023-03-03 22:00 | ED.FEVER ---
HPI - Fever General Chief Complaint: Fever Stated Complaint: fever Time Seen by Provider: 03/03/23 21:06 Source: patient Mode of arrival: ambulatory Limitations: no limitations History of Present Illness HPI Narrative: Patient is a 47 y/o male who presents to the ED with c/o fever. Patient reports he was recently diagnosed with a left upper quadrant mass of unclear etiology. He had an outpatient biopsy performed yesterday through his left mid back. He denies any significant pain since the biopsy. Today, he began feeling chilled and sweaty. He took his temperature and noted to be elevated several times up to 100.2 ?F. He states he took ibuprofen once yesterday in the morning, but did not take anything further for his fever. He called the doctor's office and was referred to the ED for further evaluation. Patient has had a mild cough and does report some recent dysuria, denies any abdominal pain or back pain, nausea, vomiting, hematuria, rash, wounds, DOTSON. He did sustain a nail puncture wound to his L thumb 2 days ago and was started on abx, unsure of name, denies any redness, drainage, or pain to L thumb. Related Data Allergies Allergy/AdvReac Type Severity Reaction Status Date / Time No Known Allergies Allergy Verified 03/03/23 21:34 Review of Systems Review of Systems: CONSTITUTIONAL: See HPI. CARDIOVASCULAR: Denies chest pain. RESPIRATORY: See HPI. GASTROINTESTINAL: Denies abdominal pain, nausea, vomiting, or diarrhea. GENITOURINARY: See HPI. SKIN: Denies rash or itching. MUSCULOSKELETAL: See HPI. NEUROLOGIC: Denies headache, numbness, or weakness. All systems reviewed & are unremarkable except as noted in HPI and below PMFSH Past Medical History Medical History Attention-deficit hyperactivity disorder, unspecified type Colon cancer screening Headache disorder Hemangioma Hyperlipidemia, unspecified Melena Neuropathic pain Paresthesia Personal history of other mental and behavioral disorders Tremor Unspecified asthma, uncomplicated Surgical History Surgical History H/O: vasectomy Family History Family History Mother Asthma Mitral and aortic heart valve diseases, unspecified Acid reflux Hypertension Iron deficiency Sibling Patient's brother is in good health Father Spleen anomaly Cirrhosis of liver Hypertension Acid reflux Diabetes mellitus Asthma Other Family history of allergic disorder Family history of autism Family history of cardiovascular disease Family history of malignant neoplasm Social History Social History Smoking status: Never smoker Second hand tobacco smoke exposure: No Alcohol intake: current Alcohol use details: rarely Substance use: never Substance use type: does not use Lack of Transportation: No Lack of Food: Never True Current Housing: I Have Housing Concerned About Future Housing: No Difficulty Paying Gas/Electric Bills: No Difficulty Paying for Meds: No Currently Unemployed: No Education: Associate Degree Difficulty w/ Childcare or Family Care: No Living arrangements: alone Occupation/Education: occupation Gender identity (if verbalized by the patient): Male Spiritual care concerns: No Exam Narrative: GENERAL: Well appearing, thin, non-toxic, in no acute distress. HEAD: Normocephalic, atraumatic. EYES: PERRLA/EOMI, conjunctiva clear. No scleral icterus. NECK: Supple. No adenopathy, no masses. RESPIRATORY: Airway patent, respirations nonlabored. Clear to auscultation bilaterally, no rales, rhonchi, wheezing. CARDIOVASCULAR: Regular rate and rhythm without murmurs, rubs, or gallops. Radial pulses 2+ and equal bilaterally. ABDOMINAL: Soft, no tenderness to palpation, n
[2023-03-03 22:43] LABS: Influenza A QL RT-PCR Negative (Negative); Influenza B QL RT-PCR Negative (Negative); SARS-CoV-2 RNA PCR Negative (Negative)
[2023-03-03 23:52] LABS: Prothrombin Time 14.2 Seconds (11.1-14.7)
[2023-03-03 23:53] LABS: Partial Thromboplastin Time 31.4 SECONDS (22.3-36.8)
[2023-03-04] VITALS (10 sets, daily range): BP systolic 115–135; BP diastolic 54–79; PULSE 88–97; RESP 14–29; O2SAT 97–100
[2023-03-04 00:37] LABS: Hepatitis B Surface Antigen Negative (Negative)
[2023-03-04 00:43] LABS: HAV RESULT Negative (Negative); Hepatitis B Core IgM Result Negative (Negative)
[2023-03-04 00:54] LABS: Hepatitis C Virus Antibody Negative (Negative)
[2023-03-04 03:00] LABS: Appearance Urine Clear (Clear); Bilirubin Urine Negative (Negative); Blood Urine Negative (Negative); Color Urine Yellow (Yellow); Glucose Urine UA Negative (Negative); Ketones Urine Negative (Negative); Leukocyte Esterase Ur Negative LEU/UL (Negative); Nitrate Urine Negative (Negative); Protein Urine Negative (Negative)
[2023-03-04 03:10] LABS: Add Urine Microscopic? YES
== END 2023-03-04 03:50 | disposition home or self-care (01) ==
PROVIDERS: Emergency Medicine; Emergency Provider Physician Assistant; PCP Internal Medicine
DX: R50.9 Fever, unspecified (principal); R19.02 Left upper quadrant abdominal swelling, mass and lump; R74.01 Elevation of levels of liver transaminase levels; Z20.822 Contact with and (suspected) exposure to COVID-19; J45.909 Unspecified asthma, uncomplicated; E78.5 Hyperlipidemia, unspecified; F90.9 Attention-deficit hyperactivity disorder, unspecified type
CPT/HCPCS: 36415; 71046; 74177; 80053; 80074; 81001; 81003; 85025; 85610; 85730; 87040; 87636; 96360; 96361; 99284; A9270; J7030; Q9967

== ENCOUNTER 2023-03-06 11:42 | Outpatient (CLI) | payer BC, SELFPAY ==
[2023-03-06 12:32] LABS: Alanine Aminotransferase 153 U/L (6-50); Albumin Level 4.4 g/dL (3.5-5.1); Alkaline Phosphatase 248 U/L (38-126); Aspartate Amino Transferase 143 U/L (17-59); Bilirubin Direct 0.1 mg/dL (0-0.3); Bilirubin,Total 2.8 mg/dL (0.2-1.3)
== END 2023-03-06 11:43 | disposition home or self-care (01) ==
PROVIDERS: PCP Family Medicine; Visit Provider Nurse Practitioner
DX: R79.89 Other specified abnormal findings of blood chemistry (principal)
CPT/HCPCS: 36415; 80076

== ENCOUNTER 2023-03-12 16:18 | Outpatient (CLI) | payer BC, SELFPAY ==
[2023-03-12 16:44] LABS: Alanine Aminotransferase 264 U/L (6-50); Albumin Level 4.1 g/dL (3.5-5.1); Alkaline Phosphatase 656 U/L (38-126); Aspartate Amino Transferase 107 U/L (17-59); Bilirubin,Total 0.7 mg/dL (0.2-1.3)
== END 2023-03-12 16:19 | disposition home or self-care (01) ==
LOC: ANHLAB 16:19
PROVIDERS: PCP Family Medicine; Visit Provider Nurse Practitioner
DX: R79.89 Other specified abnormal findings of blood chemistry (principal)
CPT/HCPCS: 36415; 80076

== ENCOUNTER 2023-12-21 09:20 | Outpatient (CLI) | payer BC, SELFPAY ==
--- NOTE | 2023-12-21 09:27 | ECG_ITS ---
Measurements Intervals [place] Rate: 62 P: 49 ME: 163 QRS: 49 QRSD: 105 T: 69 QT: 385 QTc: 391 Interpretive Statements SINUS RHYTHM NORMAL ELECTROCARDIOGRAM NO PREVIOUS ECG AVAILABLE FOR COMPARISON Electronically Signed On 12-21-2023 12:41:40 EXCAVATING MACHINE OPERATOR by Sheldon Swartz M.D.
== END 2023-12-21 09:21 | disposition home or self-care (01) ==
PROVIDERS: PCP Nurse Practitioner; Visit Provider Nurse Practitioner
DX: Z01.818 Encounter for other preprocedural examination (principal)
CPT/HCPCS: 93005

== ENCOUNTER 2024-05-20 14:57 | Outpatient (CLI) | payer BC, SELFPAY ==
[2024-05-20 19:30] LABS: LDL Cholesterol Direct 198 mg/dL
[2024-05-20 19:41] LABS: HDL Direct 59 mg/dL; Triglycerides 147 mg/dL (<150)
[2024-05-20 19:49] LABS: Cholesterol 344 mg/dL (0-200)
[2024-05-20 19:52] LABS: Prostate Specific Antigen 0.9 ng/mL (< OR = 4.0)
== END 2024-05-20 14:58 | disposition home or self-care (01) ==
LOC: ANHLAB 14:59
PROVIDERS: PCP Nurse Practitioner; Visit Provider Nurse Practitioner
DX: Z12.5 Encounter for screening for malignant neoplasm of prostate (principal); Z79.899 Other long term (current) drug therapy
CPT/HCPCS: 36415; 80061; 84153; G0103

== ENCOUNTER 2025-05-21 11:30 | Emergency (ER) | payer BC, SELFPAY ==
--- NOTE | ~2025-05-21 | XR_ITS ---
EXAM/PROCEDURE: XR chest 2V - 05/21/2025 12:02 CDT HISTORY: 49 years old Male with syncope TECHNIQUE: Two view(s) of the chest. COMPARISON: None available. FINDINGS: LUNGS/ PLEURA: No focal consolidation. No appreciable pneumothorax or large pleural effusion. HEART/ MEDIASTINUM: Heart appears normal in size. BONES: No acute osseous abnormality. OTHER: Visualized upper abdomen is unremarkable. IMPRESSION: No acute process. Reviewed, dictated and finalized at location A. IMPRESSION: No acute process.
--- NOTE | ~2025-05-21 | CT_ITS ---
EXAM: CT brain wo con - 05/21/2025 13:18 CDT History: 49 years old Male with syncope COMPARISON: None available. PROCEDURE: CT of the head without contrast. Axial, sagittal and coronal reformatted planes were milli luated. Automatic exposure control was used for this study. FINDINGS: BRAIN PARENCHYMA: No acute hemorrhage. No mass effect or herniation. Duran-white matter differentiatio n is maintained. Normal appearance of cortex. VENTRICLES/ EXTRA-AXIAL SPACES: No hydrocephalus or extra-axial fluid collection. EXTRACRANIAL STRUCTURES: No calvarial fracture. IMPRESSION: No evidence for acute intracranial hemorrhage or calvarial fracture. Reviewed, dictated and finalized at location A.
[2025-05-21 11:31] VITALS: BP 111/73; PULSE 63; RESP 18; TEMP 36.4; O2SAT 100
--- NOTE | 2025-05-21 11:37 | ECG_ITS ---
Test Date: 2025-05-21 11:43:15 Measurements Intervals [place] Rate: 63 P: 57 KS: 158 QRS: 41 QRSD: 108 T: 66 QT: 409 QTc: 419 Interpretive Statements SINUS RHYTHM No previous ECG available for comparison Electronically Signed On 05-22-2025 15:50:20 CDT by Buzz Bojorquez M.D.
--- NOTE | 2025-05-21 11:51 | PC.NURSE ---
Pt BS 70 upon arrival to ED. Pt a&ox4. Dr. Lomeli made aware. Pt provided with juice and sandwich to eat per EDP.
[2025-05-21 11:52] LABS: Hematocrit 37.5 % (42.0-52.0); Hemoglobin 12.2 g/dL (14.0-18.0); Immature Granulocyte Percent A 0.3 % (0-0.5); Lymphocytes Absolute Auto 1.26 K/mm3 (0.9-3.2); Mean Corpuscular HGB Conc 32.5 g/dl (32-36); Mean Corpuscular Hemoglobin 30.8 pg (26-34); Mean Corpuscular Volume 94.7 fl (80-100); Nucleated Red Blood Cells Absolute Auto 0.000 K/mm3 (0.0-0.012); Nucleated Red Blood Cells Perc 0.0 % (0.0-0.2); Platelet Count Result 135 k/mm3 (150-375); Red Blood Count 3.96 M/mm3 (4.6-6.20); White Blood Count 4.0 K/mm3 (4.5-10.0)
--- OUTSIDE RECORDS SUMMARY | 2025-05-21 12:20 | XMS_ITS | Clinical Summary ---
Author Organization [facility] Address [address] [place] [phone] Phone Care Team Providers Care Electricity Trader Name Role Phone Jayson Paul MD Primary Care Provider [phone] Allergies No known active allergies Medications albuterol (PROVENTIL,VENTOL IN) 0.63 mg/3 mL Solution for Nebulization Take 0.63 mg by inhalation one time only. Active fluticasone propionate (FLONASE) 50 mcg/spray [place], Suspension nasal inhaler Administer 2 Sprays in each nostril daily. Active montelukast sodium (SINGULAIR ORAL) Take by mouth. Activ e Immunizations Immunization Administration Dates Next Due (ADACEL/BOOSTRIX)(10 YR UP) TDAP VACCINE, 0.5ML, IM 02/27/2023 Social History Tobacco Use Types Packs/Day Years Used Date Smoking Tobacco: Never Passive Smoke Exposure: Never Smokeless Tobacco: Never Tobacco Cessation:Counseling Given: Not Answered Alcohol Use Standard Drinks/Week Comments Not Currently 0 (1 standard drink = 0.6 oz pur e alcohol) Sex and Gender Information Value Date Recorded Sex Assigned at Not on file Legal Sex Male 4:34 PM CDT Gender Identity Not on file Sexual Orientation Not on file Last Filed Vital Signs Vital Sign Reading Time Taken Comments Blood Pressure 123/74 02/27/2023 7:24 PM CDT Pulse 68 02/27/2023 7:24 PM CDT Temperature 36.4 C (97.6 F) 02/27/2023 7:24 PM CDT Respiratory Rate 16 02/27/2023 7:24 PM CDT Oxygen Saturation 100% 02/27/2023 7:24 PM CDT Inhaled Oxygen Concentration - - Weight 74.8 kg (165 lb) 02/27/2023 4:37 PM CDT Height 193 cm (6' 4) 02/27/2023 4:37 PM CDT Body Mass Index 20.08 02/27/2023 4:37 PM CDT Plan of Treatment Health Maintenance Due Date Last Done Comments HEPATITIS B VACCINES (1 of 3 - 19+ 3-dose series) 09/28 COLORECTAL SCREENING 2018 Colorectal Cancer Screening 2018 FIT-DNA Q 3 years 2018 FIT/FOBT Q 1 year 2018 Flex Sig/CT Colonography Q 5 years 2018 ZOSTER VACCINE (1 of 2) 2023 INFLUENZA VACCINE (#1) 2025 DTAP/TDAP/TD VACCINES (2 - Td or Tdap) 02/27/2033 Insurance BCBS BLUE ACCESS/TRUE BLUE PPO Care Teams Electricity Trader Relationship Specialty Start Date End Date Jayson Paul MD PCP - General Internal Medicine 02/27/23
--- OUTSIDE RECORDS SUMMARY | 2025-05-21 12:20 | XMS_ITS | Clinical Summary ---
Author Organization [facility] Address [address] [place] [address] Care Team Providers Care Set Making Machine Operator Name Role Phone Non-Staff, Provider Primary Care Provider Unavai lable Allergies No known active allergies Medications hydrocortisone (CORTEF) 10 MG tablet Take 1 tablet (10 mg total) by mouth 2 (two) times daily. 01/11/2024 Active mitotane (LYSODREN) 500 MG tablet Take 1 tablet by mouth 2 (two) times daily. 01/24/2024 Active montelukast (SINGULAIR) 10 MG tablet Take 1 tablet (10 mg total) by mouth daily. 05/16/2023 Active HYDROcodone-acet aminophen (NORCO) 5-325 MG tabletIndication s:Acute Pain < 7 Day Supply Take 1 tablet by mouth every 6 (six) hours as needed. Indications : Acute Pain < 7 Day Supply 20 tablet 02/28/2024 Active ondansetron (ZOFRAN) 4 MG tablet Take 1 tablet (4 mg total) by mouth every 8 (eight) hours as needed for Nausea. 20 tablet 02/28/2024 Active Encounters Date Type Department Care Team Description 04/09/2025 12:20 PM CDT - 04/09/2025 11:59 PM CDT Hospital Encounter [facility] [address] [place] [address] Monica Villeda NP Discharge Disposition: Home or Self Care (Routine Discharge) 04/09/2025 Orders Only [facility] [address] [place] [address] Monica Villeda NP from Last 3 Months Social History Tobacco Use Types Packs/Day Years Used Date Smoking Tobacco: Never Smokeless Tobacco: Never Tobacco Cessation:Counseling Given: Not Answered Sex and Gender Information Value Date Recorded Sex Assigned at Not on file Legal Sex Male 6:10 PM CDT Gender Identity Not on file Sexual Orientation Not on file Last Filed Vital Signs Vital Sign Reading Time Taken Comments Blood Pressure 128/66 06/29/2024 8:40 PM CDT Pulse 79 06/29/2024 8:40 PM CDT Temperature 36.7 C (98 F) 06/29/2024 8:40 PM CDT Respiratory Rate 16 06/29/2024 8:40 PM CDT Oxygen Saturation 98% 06/29/2024 8:40 PM CDT Inhaled Oxygen Concentration - - Weight 72.6 kg (160 lb) 06/29/2024 7:35 PM CDT Height 193 cm (6' 4) 06/29/2024 7:35 PM CDT Body Mass Index 19.48 06/29/2024 7:35 PM CDT Plan of Treatment Upcoming Encounters Date Type Department Care Team (Late st Contact Info) Description 05/28/2025 8:00 AM CDT Appointment [facility] [address] [place] [address] Monica Villeda, PARMJIT [address] [place] [id number] Health Maintenance Due Date Last Done Comments Colorectal Cancer Screening Colonoscopy (10 Years) 1973 Annual Physical 1976 Hepatitis B Vaccines (1 of 3 - 19+ 3-dose series) 1992 Pneumococcal Vaccine: 50+ Ye ars (1 of 1 - PCV) 2023 Zoster Vaccines (1 of 2) 2023 COVID-19 Vaccine (1 - 2023-2 5 season) 2024 PHQ-2 (Physician Carrizozo) 10/29/2024 DTaP, Tdap and Td Vaccines ( 2 - Td or Tdap) 02/27/2033 02/27/2023 Hepatitis C Completed 06/11/2023 Meningococcal B Vaccine Aged Out No l onger eligible based on patient's age to complete this topic Meningococcal Vaccine Aged Out No shena carlos eligible based on patient's age to complete this topic RSV Immunizations Under 20 Months Aged Out No longer eligible based on patient's age to complete this topic Procedures Procedure Name Priority Date/Time Associated Diagnosis Comments CBC W/DIFF AUTOMATED Routine 04/09/2025 10:56 AM CDT 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 ([facility] HHS/HCC) COMPREHENSIVE METABOLIC PANEL Routine 04/09/2025 10:56 AM CDT 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 ([facility] HHS/HCC) LDH, LACTATE DEHYDROGENASE Routine 04/09/2025 10:56 AM CDT 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 ([facility] HHS/HCC) MISCELLANEOUS LAB TEST Routine 04/09/2025 10:56 AM CDT 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 RANGE--- Mitotane, Serum/Plasma 8.4 mcg/mL Reporting Limit: 1.0 mcg/mL Synonym(s): Lysodren(R) Following daily doses of 5-15 grams: 7-90 mcg/mL blood. Analysis by Gas Chromatography (GC) This test was developed and its performance characteristics determined by [employer]. It has not been cleared or approved by the [place] Food and Drug Administration. Digital data review may have taken place remotely by qualified [facility] staff utilizing a secure VPN connection for some or all of the reported results. This is in accordance with and follows CLIA regulations. Test performed by [facility] Labs [address] [place] [id number] Ji Agudelo, Ph.D, -AB, [facility]-, Inspector Fuel Hose Test Reported by [facility], [employer] [facility], [address] [place], [place] Juan Guillaume M.D., Ph.D., Director of Laboratories , CLIA [id number] 04/09/2025 10:5 6 AM CDT Monica Villeda NP LABORATORY Final Result [employer] [address] [place], [place] , [place] [phone] [facility] [address] [place] [address], [place] [phone] * (ABNORMAL) COMPREHENSIVE METABOLIC PANEL (04/09/2025 10:56 AM CDT) [facility] GLUCOSE 84 70 - 99 MG/DL 04/09/2025 12:42 PM CDT [facility] BUN 17 7 - 18 MG/DL 04/09/2025 12:42 PM CDT [facility] CREATININE S/P/B 0.88 0.7 - 1.3 MG/DL 04/09/2025 12:42 PM CDT [facility] SODIUM S/P/B 138 136 - 145 MMOL/L 04/09/2025 12:42 PM CDT [facility] POTASSIUM S/P/B 4.3 3.5 - 5.1 MMOL/L 04/09/2025 12:42 PM [facility] CHLORIDE S/P/B 105 100 - 108 MMOL/L 04/09/2025 12:42 PM [facility] CO2 30.2 21 - 32 MMOL/L 04/09/2025 12:42 PM [facility] CALCIUM S/P/B 8.7 8.5 - 10.1 MG/DL 04/09/2025 12:42 PM [facility] BILIRUBIN TOTAL S/P/B 0.2 0.2 - 1.2 MG/DL 04/09/2025 12:42 PM [facility] TOTAL PROTEIN S/P/B 6.5 6.4 - 8.2 G/DL 04/09/2025 12:42 PM [facility] ALBUMIN S/P/B 3.5 3.4 - 5.0 G/DL 04/09/2025 12:42 PM [facility] AST 51(H) 15 - 37 U/L 04/09/2025 12:42 PM [facility] ALT 55 16 - 60 U/L 04/09/2025 12:42 PM [facility] ALKALINE PHOSPHATASE S/P/B 85 50 - 136 U/L 04/09/2025 12:42 PM [facility] ANION GAP 2.8(L) 5 - 15 MMOL/L 04/09/2025 12:42 PM [facility] BUN CREATININE RATIO 19.3 6 - 26 04/09/2025 12:42 PM [facility] A/G RATIO 1.2 1.0 - 2.0 RATIO 04/09/2025 12:42 PM [facility] GFR ESTIMATE >90 >90 ML/MIN/1.7 3 M2 04/09/2025 12:42 PM CDT [facility] Comment: NOTE: eGFR is not calculated for patients <18 years of age. This is an estimated GFR calculation using the new CKD EPI creatinine equation without race and so does not require a correction factor for race. This estimated GFR should not be used for calculating drug doses. 04/09/2025 10:5 6 AM CDT us Monica Villeda NP LABORATORY Final Result Performing Organization Address City/[facility]/ZIP Co de Phone Number [facility] [address] [place] [address], [place] [phone] * LDH, LACTATE DEHYDROGENASE (04/09/2025 10:56 AM CDT) Pathologist [facility] LDH 125 87 - 241 UNITS/L 04/09/2025 12:42 PM CDT [facility] 04/09/2025 10:5 6 AM CDT Monica Villeda NP LABORATORY Final Result Performing Organization Address [facility] de Phone Number [facility] [address] [place] [address], [place] [phone] * (ABNORMAL) CBC W/DIFF AUTOMATED (04/09/2025 10:56 AM CDT) WBC 3.62(L) 4.4 - 11.0 x10'3/uL 04/09/2025 12:30 PM CDT [facility] RBC 4.28(L) 4.50 - 5.90 x10'6/uL 04/09/2025 12:30 PM CDT [facility] HGB 13.5(L) 14.0 - 17.5 G/DL 04/09/2025 12:30 PM CDT [facility] HCT 40.7(L) 41.5 - 50.4 % 04/09/2025 12:30 PM CDT [facility] MCV 95.1 80.0 - 96.0 FL 04/09/2025 12:30 PM CDT [facility] MCH 31.5(H) 26.5 - 31.4 PG 04/09/2025 12:30 PM CDT [facility] MCHC 33.2 31.9 - 34.8 G/DL 04/09/2025 12:30 PM CDT [facility] RDW 13.3 12.3 - 14.3 % 04/09/2025 12:30 PM CDT [facility] PLT 139(L) 151 - 353 x10'3/uL 04/09/2025 12:30 PM T [facility] MPV 10.0 9.7 - 11.9 FL 04/09/2025 12:30 PM T [facility] RBC MORPHOLOGY NORMAL 04/09/2025 12:30 PM T [facility] PLT MORPH. NORMAL 04/09/2025 12:30 PM CDT [facility] WBC MORPHOLOGY NORMAL 04/09/2025 12:30 PM T [facility] LYMPHOCYTES % 35.9 15.8 - 45.0 % 04/09/2025 12:30 PM CDT [facility] NEUTROPHILS % 51.9 42.1 - 71.9 % 04/09/2025 12:30 PM CDT [facility] MONOCYTES % 8.3 5.7 - 12.5 % 04/09/2025 12:30 PM CDT [facility] EOSINOPHILS 2.8 0.0 - 5.6 % 04/09/2025 12:30 PM CDT [facility] BASOPHILS 0.8 0.0 - 1.3 % 04/09/2025 12:30 PM CDT [facility] ABS. NEUTROPHILS 1.88 1.40 - 6.00 x10'3/uL 04/09/2025 12:30 PM CDT [facility] IMMATURE GRANS % 0.3 0.0 - 0.5 % 04/09/2025 12:30 PM CDT [facility] ABS. LYMPHOCYTES 1.30 0.80 - 4.70 x10'3/uL 04/09/2025 12:30 PM CDT [facility] 04/09/2025 10:5 6 AM CDT Monica Villeda NP LABORATORY Final Result Performing Organization Address City/State/[facility] Co de Phone Number [facility] [address] [place] [address], from Last 3 Months Insurance [facility] Care Teams Set Making Machine Operator Relationship Specialty Start Date End Date Non-Staff, Provider PCP - General UNKNOWN PHYSICIAN SPECIALTY 07/09/24
--- OUTSIDE RECORDS SUMMARY | 2025-05-21 12:20 | XMS_ITS | Encounter Summary ---
Author Organization [facility] Address [facility] [place] [address] Care Team Providers Care High School Math Teacher Name Role Phone Nidia Jiang MD Primary Care Provider Unavailable Michael Arriaza MD Primary Care Provider [phone] Non-Staff, Provider Primary Care Provider Rochelle peters Encounter Details Date Type Department Care Team (Late Contact Info) Description 09/01/2017 Abstract [place] [address] Nidia Jiang MD Social History Tobacco Use Types Packs/Day Years Used Date Smoking Tobacco: Never Assessed Sex and Gender Information Value Date Recorded Sex Assigned at Not on file Legal Sex Male 6:10 PM CDT Gender Identity Not on file Sexual Orientation Not on file documented as of this encounter Plan of Treatment Upcoming Encounters Date Type Department Care Team (Late Contact Info) Description 05/28/2025 8:00 AM CDT App[place] [address] [facility] [place] [address] Monica Villeda, ORDNANCE TECHNICIAN [address] [place] [address] documented as of this encounter Visit Diagnoses Not on filedocumented in this encounter Care Teams High [employer] Math Teacher Relationship Specialty Start Date End Date Nidia Jiang MD PCP - General 07/24/13 [place] [address] [place] [address] PCP - General HEMATOLOGY/ONCOLOGY 01/10/24 07/08/24 Non-Staff, Provider PCP - General UNKNOWN PHYSICIAN SPECIALTY 07/09/24 documented as of this encounter
[2025-05-21 12:35] LABS: Alanine Aminotransferase 30 U/L (6-50); Albumin Level 3.3 g/dL (3.5-5.1); Alkaline Phosphatase 75 U/L (38-126); Anion Gap 3 mmol/L (4-12); Aspartate Amino Transferase 40 U/L (17-59); Bilirubin,Total 0.2 mg/dL (0.2-1.3); Blood Urea Nitrogen 15 mg/dL (9-20); Calcium 8.6 mg/dL (8.4-10.2); Carbon Dioxide 27 mmol/L (22-30); Chloride 105 mmol/L (98-107); Estimated CRCL calculation 115 ml/min; Estimated Glomerular Filt Rate > 60; Glucose 49 mg/dL (65-110); Potassium 4.0 mmol/L (3.4-5.0); Sodium 135 mmol/L (137-145); Total Protein 6.0 g/dL (6.3-8.2)
--- NOTE | 2025-05-21 12:39 | ED_ITS ---
HPI - Syncope General Chief Complaint: Syncope Stated Complaint: weakaness Time Seen by Provider: 05/21/25 12:03 Source: patient Mode of arrival: EMS History of Present Illness HPI narrative: Oargm-ikd-rbgo-old male presenting for syncopal episode at work. Patient was walking out to his truck while working and the higher made it feel quite lightheaded, weak and he had a syncopal episode. Lasted a few seconds. Does not think he has had. This point is feeling a lot better. Slightly groggy but no weakness, paresthesias, vision changes, headache, lightheadedness. Related Data Home Medications ?Medication ?Instructions ?Recorded ?Confirmed ?Last Taken ?Type wdgyyndv-leomqxfl-dwlv 8 mg-folic 1 tablet PO DAILY 09/25/23 05/06/25 Unknown History ac 400 mcg-vit K 10 mcg chew tablet (Centrum Chewables) albuterol sulfate 0.63 mg/3 mL 0.63 mg inhalation Q6H PRN 05/20/24 05/06/25 Unknown History solution for nebulization hydrocortisone 10 mg tablet 20 mg PO BID 05/20/24 05/06/25 Unknown History mitotane 500 mg tablet (Lysodren) 1 g PO BID 05/20/24 05/06/25 Unknown History ondansetron HCl 4 mg tablet 4 mg PO Q8H 05/20/24 05/06/25 Unknown History Allergies Allergy/AdvReac Type Severity Reaction Status Date / Time No Known Allergies Allergy Verified 05/21/25 11:37 Review of Systems 2 Review of Systems: All systems reviewed & are unremarkable except as noted in HPI and below (History a) [facility] Past Medical History Medical History BMI 20.0-20.9, adult Colon cancer screening Melena Attention-deficit hyperactivity disorder, unspecified type Headache disorder Hemangioma Hyperlipidemia, unspecified Neuropathic pain Paresthesia Personal history of other mental and behavioral disorders Tremor Unspecified asthma, uncomplicated Surgical History Surgical History H/O tooth extraction H/O: vasectomy Family History Family History Mother Hypertension Cerebrovascular accident Sibling No problems noted. Father No problems noted. Other CHF (congestive heart failure) Cirrhosis of liver Social History Social History Smoking status: Never smoker Second hand tobacco smoke exposure: No Alcohol intake: current Alcohol use details: rarely Substance use: never Substance use type: does not use Do You Feel Safe in your Home?: Yes Lack of Transportation: No Lack of Food: Never True Current Housing: I Have Housing Concerned About Future Housing: No Difficulty Paying Gas/Electric Bills: No Difficulty Paying for Meds: No Currently Unemployed: No Education: Associate Degree Difficulty w/ Childcare or Family Care: No Living arrangements: with family Additional living arrangements comments: POA for mother. 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 Eyes: Pupils equal, round, and reactive to light. Neck: Supple, no tracheal deviation, no JVD. ENMT: Mucous membranes moist Cardiovascular: S1, S2 auscultated. No murmurs, rubs, or gallops. No S3/S4. Normal Distal pulses. No peripheral edema. Respiratory: Lung sounds equal. No wheezes, rales, or rhonchi. Gastrointestinal: Abdomen was soft and non-tender. Non-distended. No rebound or guarding. Genitourinary: Deferred Musculoskeletal: Normal muscle tone and bulk. No obvious deformities or tenderness over extremities. Skin: No rashes. Neurological: Strength 5/5 in extremities. Cranial nerves I-XII grossly intact. Distal sensation intact. Mental Status: Awake, alert and oriented x3. Follows commands Course Vital Signs Vital signs: Vital Signs Temperature 36.4 C L 05/21/25 11:31 Pulse Rate 63 05/21/25 11:31 Respiratory Rate 18 05/21/25 11:31 Blood Pressure 111/73 05/21/25 11:31 Pulse Oximetry 100 05/21/25 11:31 Oxygen Delivery Room Air 05/21/25 11:31 Temperature 36.4 C L 05/21/25 11:31 Pulse Rate 68 05/21/25 12:42 Respiratory Rate 19 05/21/25 12:42 Blood Pressure 127/73 05/21/25 12:42 Pulse Oximetry 100 07/24/25 12:42 Oxygen Delivery Room Air 05/21/25 11:31 MDM - Syncope MDM Narrative Medical decision making narrative: Patient presenting for syncopal episode at work. Happen every walk outside in the heat. Over 90? outside today. Feeling a lot better now this point. On exam is vitals are regular, normal neurological and normal cardiorespiratory exam. Obtaining cardiac, neurological testing, CT head. Blood glucose was 49 upon arrival. Intravenous glucose was administered. Feeling improved. Sugars improved to over 100. Imaging and labs otherwise unremarkable. Repeat glucose x2 was improved. Patient does feel comfortable going home at this point. I discussed test his glucose at home he does have a glucose monitor her family member and increase his sugar intake the has any sort of weakness or dizziness sensation future. Given workup. Pt feeling improved and would like to go home at this point. Return precautions were given to the patient include any new or worsening symptoms or development of and not limited to any chest pain, shortness of breath, lightheadedness, abdominal pain, fevers, chills. Patient understands and agrees. They are to follow-up with her PCP. All questions were answered. I reviewed the patient's vital signs, history, allergies, and labs and imaging workup. Lab Data 05/21/25 11:46 05/21/25 11:46 Labs: Lab Results 05/21/25 05/21/25 05/21/25 Range/Units 11:41 11:46 11:46 WBC 4.0 L (4.5-10.0) K/mm3 RBC 3.96 L (4.6-6.20) M/mm3 Hgb 12.2 L (14.0-18.0) g/dL Hct 37.5 L (42.0-52.0) % MCV 94.7 (80-100) fl MCH 30.8 (26-34) pg MCHC 32.5 (32-36) g/dl RDW 13.2 (11.5-14.5) % Plt Count 135 L (150-375) k/mm3 MPV 9.5 (7.4-10.4) fl Immature Gran % (Auto) 0.3 (0-0.5) % Neut % (Auto) 56.3 (45.5-73.1) % Lymph % (Auto) 31.7 (18.3-44.2) % Cotton % (Auto) 8.1 (2.6-8.5) % Eos % (Auto) 2.8 (0-4.4) % Baso % (Auto) 0.8 (0.2-1.2) % Lymph # (Auto) 1.26 (0.9-3.2) K/mm3 Cotton # (Auto) 0.3 (0.1-0.6) K/mm3 Eos # (Auto) 0.1 (0-0.3) K/mm3 Baso # (Auto) 0.0 (0.0-0.1) K/mm3 Abs Immat Gran (auto) 0.01 (0.00-0.031) K/mm3 Absolute Neuts (auto) 2.2 (1.3-6.7) K/mm3 Absolute Nucleated RBC 0.000 (0.0-0.012) K/mm3 Nucleated RBC % 0.0 (0.0-0.2) % Sodium 135 L (137-145) mmol/L Potassium 4.0 (3.4-5.0) mmol/L Chloride 105 (98-107) mmol/L Carbon Dioxide 27 (22-30) mmol/L Anion Gap 3 L (4-12) mmol/L BUN 15 (9-20) mg/dL Creatinine 0.77 (0.7-1.3) mg/dL Estim Creat Clear Calc 115 ml/min Estimated GFR > 60 (59 - ) Glucose 49 L* (65-110) mg/dL POC Capillary Glucose 72 (65-105) mg/dl Calcium 8.6 (8.4-10.2) mg/dL Total Bilirubin 0.2 (0.2-1.3) mg/dL AST 40 (17-59) U/L ALT 30 (6-50) U/L Alkaline Phosphatase 75 (38-126) U/L Total Creatine Kinase 34 L Cancelled (55-170) U/L Total Protein 6.0 L (6.3-8.2) g/dL Albumin 3.3 L (3.5-5.1) g/dL /24/ Range/Units 12:39 WBC (4.5-10.0) K/mm3 RBC (4.6-6.20) M/mm3 Hgb (14.0-18.0) g/dL Hct (42.0-52.0) % MCV (80-100) fl MCH (26-34) pg MCHC (32-36) g/dl RDW (11.5-14.5) % Plt Count (150-375) k/mm3 MPV (7.4-10.4) fl Immature Gran % (Auto) (0-0.5) % Neut % (Auto) (45.5-73.1) % Lymph % (Auto) (18.3-44.2) % Cotton % (Auto) (2.6-8.5) % Eos % (Auto) (0-4.4) % Baso % (Auto) (0.2-1.2) % Lymph # (Auto) (0.9-3.2) K/mm3 Cotton # (Auto) (0.1-0.6) K/mm3 Eos # (Auto) (0-0.3) K/mm3 Baso # (Auto) (0.0-0.1) K/mm3 Abs Immat Gran (auto) (0.00-0.031) K/mm3 Absolute Neuts (auto) (1.3-6.7) K/mm3 Absolute Nucleated RBC (0.0-0.012) K/mm3 Nucleated RBC % (0.0-0.2) % Sodium (137-145) mmol/L Potassium (3.4-5.0) mmol/L Chloride (98-107) mmol/L Carbon Dioxide (22-30) mmol/L Anion Gap (4-12) mmol/L BUN (9-20) mg/dL Creatinine (0.7-1.3) mg/dL Estim Creat Clear Calc ml/min Estimated GFR (59 - ) Glucose (65-110) mg/dL POC Capillary Glucose 120 H (65-105) mg/dl Calcium (8.4-10.2) mg/dL Total Bilirubin (0.2-1.3) mg/dL AST (17-59) U/L ALT (6-50) U/L Alkaline Phosphatase (38-126) U/L Total Creatine Kinase (55-170) U/L Total Protein (6.3-8.2) g/dL Albumin (3.5-5.1) g/dL Critical Care Time Critical Care Time Critical Care Time: Yes Total Critical Care Time: 35 Discharge Plan Discharge Clinical Impression: Hypoglycemia Syncope Qualifiers: Syncope type: vasovagal syncope Qualified Code(s): R55 - Syncope and collapse Patient Disposition: Home Condition: Stable Instructions: Antibiotic Form, Dehydration (ED), Syncope (ED), Non-diabetic Hypoglycemia (ED) Patient Language: Andorran Prescriptions: No Action albuterol sulfate 0.63 mg/3 mL solution for nebulization 0.63 mg inhalation Q6H PRN Lysodren 500 mg tablet 1 g PO BID ondansetron HCl 4 mg tablet 4 mg PO Q8H fluticasone propionate [Flonase Allergy Relief] 50 mcg/actuation spray,suspension 2 spray intranasal DAILY Qty: 16 5RF Rx Instructions: administer into each nostril hydrocortisone 10 mg tablet 20 mg PO BID Centrum Chewables 8 mg-400 mcg- 10 mcg tablet,chewable 1 tablet PO DAILY rosuvastatin 40 mg tablet 40 mg PO DAILY Qty: 90 3RF montelukast 10 mg tablet 10 mg PO DAILY Qty: 90 3RF albuterol sulfate 90 mcg/actuation HFA aerosol inhaler 2 puff INHALATION Q4-6H PRN (Reason: Wheezing) Qty: 8.5 5RF ciclopirox 8 % solution 1 applic topical QHS 28 Days Qty: 6.6 2RF xfhcosoqhk-rgjkfhacxj-xqq-cod [Fioricet with Codeine] 21-790-73-30 mg capsule 1 cap PO Q6H PRN (Reason: pain) Qty: 20 0RF Follow-up/Referrals: Felix Fong APRN [Primary Care Provider] - Time of Disposition: 14:12
[2025-05-21 12:42] VITALS: BP 127/73; PULSE 68; RESP 19; O2SAT 100
[2025-05-21 13:20] LABS: Creatine Kinase 34 U/L (55-170)
[2025-05-21 13:50] VITALS: BP 131/75; PULSE 73; RESP 19; O2SAT 100
[2025-05-21 14:15] VITALS: BP 129/87; PULSE 63; RESP 13; O2SAT 100
== END 2025-05-21 14:45 | disposition home or self-care (01) ==
PROVIDERS: Emergency Medicine; Emergency Provider Emergency Medicine; PCP Nurse Practitioner
DX: E16.2 Hypoglycemia, unspecified (principal); R55 Syncope and collapse; E78.5 Hyperlipidemia, unspecified; J45.909 Unspecified asthma, uncomplicated
CPT/HCPCS: 36415; 70450; 71046; 80053; 82550; 82948; 85025; 93005; 99284

== ENCOUNTER 2025-08-04 14:07 | Outpatient (CLI) | payer BC, SELFPAY ==
[2025-08-04 14:56] LABS: Alanine Aminotransferase 43 U/L (6-50); Albumin Level 3.9 g/dL (3.5-5.1); Alkaline Phosphatase 78 U/L (38-126); Anion Gap 2 mmol/L (4-12); Aspartate Amino Transferase 43 U/L (17-59); Bilirubin,Total 0.2 mg/dL (0.2-1.3); Blood Urea Nitrogen 20 mg/dL (9-20); Calcium 9.0 mg/dL (8.4-10.2); Carbon Dioxide 29 mmol/L (22-30); Chloride 102 mmol/L (98-107); Cholesterol 258 mg/dL (0-200); Estimated Glomerular Filt Rate > 60; Glucose 87 mg/dL (65-110); HDL Direct 82 mg/dL; Potassium 4.3 mmol/L (3.4-5.0); Sodium 133 mmol/L (137-145); Total Protein 7.1 g/dL (6.3-8.2); Triglycerides 65 mg/dL (<150)
--- OUTSIDE RECORDS SUMMARY | 2025-08-04 15:04 | XMS_ITS | Clinical Summary ---
Author Organization [facility] Address [address] [place] [address] Care Team Providers Care Wood Mechanist Name Role Phone Felix Fong APRN-WINDOW SYSTEMS ADMINISTRATOR Primary Care Provider Source Comments [facility],non-owned Affiliates and Associated Physician Practices is amultiple site organization consisting of ambulatory clinics and hospital sitesin [place], [place], [place]. This disclosure is being madepursuant to the Care Everywhere program and may not contain all information available regarding this patient. Last updated 18.[facility] Allergies No known active allergies Medications * Be aware that medications may not be up to date on this document. Alwaysverify current medications with the patient. fluticasone propionate (Flonase) 50 MCG/ACT nasal spray USE 2 SPRAY(S) IN EACH NOSTRIL ONCE DAILY 3 Active montelukast (Singulair) 10 MG tablet Take 1 (one) tablet by mouth once daily 3 Active ALBUTEROL IN Inhale by mouth as needed Active Multiple Vitamin (MULTIVITAMIN ADULT PO) Take by mouth once daily Active acetaminophen (Tylenol) 500 MG tablet Take 1 (one) tablet by mouth every 4 hours as needed for Fever or Pain Maximum allowable Acetaminophen amount = 4 Grams (4000 mg) / 24 hours. 3 Active Additional Information Patient not taking.Reported on 04/02/2025 ibuprofen (Motrin) 400 MG tablet Take 1 (one) tablet by mouth every 6 hours as needed for Pain 30 tablet 3 Active HYDROcodone-ac etaminophen (Mesa) 5-325 MG tablet Take 1 (one) tablet by mouth every 6 hours as needed for Pain 4 Active hydrocortisone (Cortef) 10 MG tablet Take 1 (one) tablet by mouth 2 times daily 4 Active mitotane (Lysodren) 500 MG tablet Take 2 (two) tablets by mouth SEE ADMIN INSTRUCTIONS TWO IN THE AM AND THREE AT NIGHT 4 Active rosuvastatin (Crestor) 10 MG tablet Take 1 (one) tablet by mouth once daily Active Active Problems Problem Noted Date Diagnosed Date 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 03/06 ALT 153 AST 143 ALP 248 03/12/23 ALT 264 AST 107 ALP 656 04/03/24 Fibroscan CAP 174, LSM 4.6 kPa Family History Medical History Relation Name Comments Cirrhosis Father Relation Name Status Comments Father Social History Tobacco Use Types Packs/Day Years Used Date Smoking Tobacco: Never Smokeless Tobacco: Never Tobacco Cessation:Counseling Given: Not Answered Alcohol Use Standard Drinks/Week Comments Not Currently 0 (1 standard drink = 0.6 oz pur e alcohol) AUDIT-C Answer Date Recorded Frequency of Alcohol Consumption Not on file 09/07/2023 Q2: How many drinks containi ng alcohol do you have on a typical day when you are drinking? Patient does not drink 3 Frequency of Binge Drinking Not on file 08/29 Overall Financial Resource Strain (CARDIA) Answe r Date Recorded How hard is it for you to pa y for the very basics like food, housing, medical care, and heating? Not hard at all 09/08/2023 [facility] - Occupational Stress Questionnaire Answer Date Recorded Do you feel stress - tense, restless, nervous, or anxious, or unable to sleep at night because your mind is troubled all the time - these days? Not at all 09/08/2023 Hunger Vital Sign Answer Date Recorded Within the past 12 months, y ou worried that your food would run out before you got the money to buy more. Never true 09/08/20 23 Within the past 12 months, t he food you bought just didn't last and you didn't have money to get more. Never true 09/08/2023 PRAPARE - Transportation Answer Date Re corded In the past 12 months, has l ack of transportation kept you from medical appointments or from getting medications? No 08/29 In the past 12 months, has l ack of transportation kept you from meetings, work, or from getting things needed for daily living? No 09/08/2023 Housing Stability Vital Sign Answer Raul e Recorded In the last 12 months, was t here a time when you were not able to pay the mortgage or rent on time? No 09/08/2023 In the last 12 months, how many places have you lived? 1 09/08/2023 In the last 12 months, was t here a time when you did not have a steady place to sleep or slept in a skilled nursing (including now)? 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 Gender Identity Not on file Sexual Orientation Not on file Last Filed Vital Signs Vital Sign Reading Time Taken Comments Blood Pressure 105/61 04/02/2025 10:01 AM CDT Pulse 75 04/02/2025 9:56 AM CDT Temperature 36.1 C (97 F) 09/27/2023 8:18 AM BREAKDOWN WORKER Respiratory Rate 18 09/24/2023 11:08 AM BREAKDOWN WORKER Oxygen Saturation 100% 04/02/2025 9:56 AM CDT Inhaled Oxygen Concentration - - Weight 75.3 kg (166 lb) 04/02/2025 9:56 AM CDT Height 193 cm (6' 4) 04/02/2025 9:56 AM CDT Body Mass Index 20.21 04/02/2025 9:56 AM CDT Plan of Treatment Health Maintenance Due Date Last Done Comments COLOGUARD (AGES 45-75) - COL ON CA SCREENING 1973 COLON MONITORING 1973 COLONOSCOPY - COLON CA SCREENING 1973 CT COLONOGRAPHY - COLON CA SCREENING 1973 Colorectal Cancer Screening 1973 FIT - COLON CA SCREENING 1973 FLEX SIG - COLON CA SCREENING 1973 HIV SCREENING 1988 DTAP/TDAP/TD VACCINES (1 - Tdap) 1992 HEPATITIS B VACCINE (1 of 3 - 19+ 3-dose series) 1992 PNEUMOCOCCAL VACCINE 50+ (1 of 1 - PCV) 2023 ZOSTER VACCINE (1 of 2) 2023 DEPRESSION SCREENING 10/29/2024 COVID-19 VACCINE (2 - 2024-2 6 season) 2025 08/27/2021 INFLUENZA VACCINE (#1) 2025 HEPATITIS C SCREENING Completed 06/11/2023 HIB VACCINE Aged Out No longer eligi ble based on patient's age to complete this topic HPV VACCINE Aged Out No longer eligi ble based on patient's age to complete this topic MENINGOCOCCAL (Group B) VACC INE SHARED DECISION-MAKING Aged Out No longer eligibl e based on patient's age to complete this topic MENINGOCOCCAL GROUPS A/C/Y/W VACCINE Aged Out No longer eligible b ased on patient's age to complete this topic Goals Goal Patient Goal Type Associated Problems Recent Progress Patient-Stated? Author Medication Management General On track( 025 9:57 AM CDT) No Fabiola Hernandez RN Note: Expected end date: Ongoing Interventions: Take all medications as prescribed Let your doctor know right away about any changes in your medications Make sure to request a refill of your medication at least one week prior to your last dose Procedures Procedure Name Priority Date/Time Associated Diagnosis Comments HEPATITIS C ANTIBODY Routine 06/11/2023 10:05 AM CDT Elevated liver enzymes from Last 3 Months or Most Recently Relevant to Health Maintenance Results * HEPATITIS C ANTIBODY (06/11/2023 10:05 AM CDT) Hepatitis C Antibody Non-react naty Non-reac tive 06/11/2023 11:25 AM CDT [facility] Comment:Hepatitis C Antibody screen indicates no serologic evidence of past or current infection with Hepatitis C Virus. Patients with unexplained liver disease who are immunocompromised or suspected of having acute Hepatitis C infection may benefit from Nucleic Acid Test (ANTWON) for Hepatitis C Viral RNA to confirm Hepatitis C status. Blood BLOOD SPECIMEN / Unknown Lab Venipuncture / Unknown 06/11/2023 10:05 AM CDT 06/11/2023 10:21 AM CDT Dominga Brigid Osborne STRIP POLISHER-WINDOW SYSTEMS ADMINISTRATOR LAB - CHEMISTRY ORD ERABLES Final Result [facility] [address] [place] [address], [facility] [phone] from Last 3 Months or Most Recently Relevant to Health Maintenance Insurance MEDICAID - OUT OF STATE ANTHEM ANTHEM Advance Directives * Full Code (Latest Code Status on File) Date Activated Date Inactivated Comments 09/07/2023 2:33 PM 09/10/2023 12:59 PM Care Teams Wood Mechanist Relationship Specialty Start Date End Date Felix Fong, [employer]-WINDOW SYSTEMS ADMINISTRATOR [address] [place] [address] PCP - General Nurse Practitioner 06/12/23
--- OUTSIDE RECORDS SUMMARY | 2025-08-04 15:04 | XMS_ITS | Encounter Summary ---
Author Organization [facility] Address [address] [place] [address] Phone Care Team Providers Care Content Manager Name Role Phone Felix Fong APRN, CNP Primary Care Provider Felix Fong APRN, CNP Unavailable [phone] Michael Arriaza MD Unavailable [phone] Moe Rooney MD Unavailable [phone] Michael Arriaza MD Unavailable [phone] Reason for Visit * Reason Comments Medication Refill Encounter Details Date Type Department Care Team (Late st Contact Info) Description 09/22/2024 Refill [facility] [address] [place] [address] Michael Arriaza MD [address] [place] [address] Medication Refill Social History Tobacco Use Types Packs/Day Years Used Date Smoking Tobacco: Never Smokeless Tobacco: Never Alcohol Use Standard Drinks/Week Comments Never 0 (1 standard drink = 0.6 oz pur e alcohol) Sex and Gender Information Value Date Recorded Sex Assigned at Not on file Legal Sex Male 9:20 PM CDT Gender Identity Not on file Sexual Orientation Not on file documented as of this encounter Miscellaneous Notes * Telephone Encounter - Agnes Sykes RN - 09/22/2024 9:36 AM CST Duplicate request ER [employer] documented in this encounter Plan of Treatment Upcoming Encounters Date Type Department Care Team (Late st Contact Info) Description 08/20/2025 8:30 AM CDT Office Visit [facility] [address] [address] Michael Arriaza MD [address] [place] [address] documented as of this encounter Visit Diagnoses Diagnosis 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
--- OUTSIDE RECORDS SUMMARY | 2025-08-04 15:04 | XMS_ITS | Encounter Summary ---
Author Organization [facility] Address [address] [place] [address] Care Team Providers Care Hot Man Name Role Phone April Martínez MD Primary Care Provider [phone] Felix Fong [facility] Primary Care Provider Encounter Details Date Type Department Care Team (Late st Contact Info) Description 03/13/2023 Lab Requisition [facility] - Pathology Lab [address] [place] [address] Krzysztof Abreu MD [facility] [address] [address] Illness, unspecified Social History Tobacco Use Types Packs/Day Years Used Date Smoking Tobacco: Never Assessed Sex and Gender Information Value Date Recorded Sex Assigned at Not on file Legal Sex Male 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 SETTER Gender Identity Not on file Sexual Orientation Not on file documented as of this encounter Plan of Treatment Not on file documented as of this encounter Procedures Procedure Name Priority Date/Time Associated Diagnosis Comments PATHOLOGY TISSUE Routine 03/02/2023 11:4 2 AM CDT Illness, unspecified documented in this encounter Results * PATHOLOGY TISSUE (03/02/2023 11:42 AM CDT) Case Report Surgical Pathology Report Case: [id number] Authorizing Provider: Krzysztof Abreu MD Collected: 03/02/2023 11:42 AM Ordering Location: [facility] Pathology Lab Received: 03/13/2023 10:08 AM Pathologist: Isai Sousa MD Specimen: Lymph Node Biopsy, GIST, Lymphoma, Adrenal Tumor 03/15/2023 11:10 AM CDT [facility] Amended Report Case is being canceled and re-accessioned properly. Confusion with specimen type, consult process, and pathologist assignment. Case charges credited. WRR [id number] 03/15/2023 11:10 AM CDT [facility] Final Diagnosis Case canceled. See amendment. [id number] 03/15/2023 11:10 AM CDT [facility] Amendment electronically signed by Brittany Billingsley on 03/15/2023 at 1110 CDT at 1134 CDT Clinical History 03/15/2023 11:10 AM CDT [facility] Materials Received 03/15/2023 11:10 AM CDT [facility] Pathologist Location at [facility] 03/15/2023 11:10 AM CDT [facility] Disclaimer 03/15/2023 11:10 AM CDT [facility] Embedded Images 03/15/2023 11:10 AM CDT [facility] PATHOLOGY LAB Pathology/Cytolo gy BIOPSY OF LYMPH NODE / Unknown 03/02/2023 11:42 AM CDT 03/13/2023 10:08 AM CDT Narrative [facility] PATHOLOGY LAB - 03/15/2023 11:10 AM CDT A previously reported component Microscopic Description and Comment is no longer reported. us Krzysztof Abreu MD LAB - PATHOLOGY/CYTOLOGY ORDERAB LES Edited Result - Final [facility] PATHOLOGY LAB [address] [phone] documented in this encounter Visit Diagnoses Diagnosis Illness, unspecified documented in this encounter Care Teams Hot Man Relationship Specialty Start Date End Date April Martí[place] [address] [facility] [address] [place] [address] PCP - General 03/05/23 06/11/23 Felix Fong APRN-COT ASSEMBLER [address] [place] [address] PCP - General Nurse Practitioner 06/12/23 documented as of this encounter
--- OUTSIDE RECORDS SUMMARY | 2025-08-04 15:04 | XMS_ITS ---
Author Organization 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 No medications schedul ed. No medications scheduled. SUPPORT - HYDRATION WITHOUT ADDITIVES - CCSCI* Plan Start Date:03/21/2024 Plan Provider:Michael Arriaza MD Linked Problems Adrenal cortical adenocarcin jorge of left adrenal gland Treatment Medications No medications scheduled. Past Treatment and Therapy Plans No past plan information found.
--- OUTSIDE RECORDS SUMMARY | 2025-08-04 15:04 | XMS_ITS | Clinical Summary ---
Author Organization [address] Address [address] [place] [phone] Care Team Providers Care Toolsmith Name Role Phone Felix Fong NP Primary Care Provider [phone] Michael Arriaza MD Unavailable [phone] Allergies No known active allergies Medications acetaminophen (TYLENOL) 500 mg tablet Take 1 tablet (500 mg total) by mouth 3 Active albuterol 0.63 mg/3 mL nebulizer solution Inhale 3 mL (0.63 mg total) Active butalbitaL-acetami nop-caf-cod [id number] mg capsule 2 Active fluticasone propionate (FLONASE) 50 mcg/actuation nasal spray USE 2 SPRAY(S) IN EACH NOSTRIL ONCE DAILY 3 Active ibuprofen (ADVIL,MOTRIN) 400 mg tablet Take 1 tablet (400 mg total) by mouth every 6 (six) hours as needed 3 Active methocarbamoL (ROBAXIN) 750 mg tablet Take 1 tablet (750 mg total) by mouth every 8 (eight) hours as needed 3 Active mitotane (LYSODREN) 500 mg tablet Take 1 tablet (500 mg total) by mouth 4 (four) times a day 4 Active montelukast (SINGULAIR) 10 mg tablet Take 1 tablet (10 mg total) by mouth daily 3 Active rosuvastatin (CRESTOR) 20 mg tablet Take 2 tablets (40 mg total) by mouth daily 4 Active hydrocortisone (CORTEF) 10 mg tabletIndications: Adrenal Cortical Insufficiency Take 1 tablet (10 mg total) by mouth 2 (two) times a day 180 tablet 3 5 05/18/20 26 Active Active Problems Problem Noted Date Diagnosed Date 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 01/24/2024 Adrenal insufficiency after adrenalectomy 2022 Assessment & Plan (11/17/2024 4:23 PM DECK SCALER): Left adrenal mass status post left adrenalectomy 08/2023, adrenal cortical carcinoma Right adrenal gland intact Patient currently on mitotane therapy 2500 mg oral daily Continue hydrocortisone 15 mg oral in morning and 10 mg in the afternoon Patient clinically stable, denies any complaints Explained patient sick day rules Check 24 urine cortisol levels Check ACTH levels Check thyroid function test Also include renin and aldosterone levels Recent CMP showed normal serum sodium and potassium levels Follow-up in 6 months Assessment & Plan (05/12/2024 9:34 AM CDT): Left adrenal mass status post left adrenalectomy 08/2023, adrenal cortical carcinoma Right adrenal gland intact Patient currently on mitotane therapy 1000 mg oral BID Continue hydrocortisone 20 mg oral twice a day Patient clinically stable, denies any complaints Explained patient sick day rules Check morning cortisol levels and include 24 hour urine free cortisol levels Recent CMP within normal limits Assessment & Plan (02/11/2024 2:26 PM CDT): Left adrenal mass status post left adrenalectomy 08/2023, adrenal cortical carcinoma Right adrenal gland intact Patient currently on mitotane therapy Continue hydrocortisone 10 mg oral twice a day Patient clinically stable, denies any complaints Explained patient sick day rules Advised patient to notify us if his mitotane dose has been adjusted by his oncology Check morning labs and further plans based on it Elevated liver enzymes 06/11/2023 Encounters Date Type Department Care Team Description 07/07/2025 Telephone [facility] [address] [address] James Schneider MD Med Management 06/23/2025 Results Follow-Up [facility] [address] [address] James Schneider MD Volume and period, urine, 24 hour, Cortisol free urine 24 hour 05/25/2025 8:04 AM CDT - 05/25/2025 11:59 PM CDT Hospital Encounter [address] [address] Adrenal insufficiency after adrenalectomy Discharge Disposition: Discharge to home or self care 05/25/2025 8:00 AM CDT Lab [facility] Outpatient Lab at [address] [address] 05/20/2025 Results Follow-Up [facility] of [address] [address] James Schneider MD TSH, T4, free, T3, free 05/18/2025 10:11 AM CDT - 05/18/2025 11:59 PM CDT Hospital Encounter [address] [address] Abnormal thyroid function test Discharge Disposition: Discharge to home or self care 05/18/2025 10:00 AM CDT Lab [facility] Outpatient Lab at [address] [address] 05/18/2025 9:30 AM CDT Office Visit [facility] [address] [place] [phone] James Schneider MD Adrenal insufficiency after adrenalectomy (Primary Dx); Abnormal thyroid function test 05/18/2025 Telephone [facility] [address] [place] [phone] James Schneider MD patient requested work note from Last 3 Months Surgical History Surgery Date Site/Laterality Comments ADRENAL GLAND SURGERY TOOTH EXTRACTION Medical History Medical History Date Comments Adrenal cancer (HCC) Family History Relation Name Status Comments Brother Alive Father Mother Alive Social History Tobacco Use Types Packs/Day Years Used Date Smoking Tobacco: Never PHQ-2 Answer Date Recorded PHQ-2 Total Score (If total score is 3 or more points, staff should administer the PHQ-9) 0 05/12/2024 Sex and Gender Information Value Date Recorded Sex Assigned at Not on file Legal Sex Male 2:21 AM DECK SCALER Gender Identity Not on file Sexual Orientation Not on file Obstetrics History Last Filed Vital Signs Vital Sign Reading Time Taken Comments Blood Pressure 112/72 05/18/2025 9:29 AM CDT Pulse 78 05/18/2025 9:29 AM CDT Temperature - - Respiratory Rate 15 05/18/2025 9:29 AM CDT Oxygen Saturation - - Inhaled Oxygen Concentration - - Weight 75.3 kg (166 lb) 05/18/2025 9:29 AM CDT Height 193 cm (6' 4) 05/18/2025 9:29 AM CDT Body Mass Index 20.21 05/18/2025 9:29 AM CDT Plan of Treatment Health Maintenance Due Date Last Done Comments Colon Cancer Screening-Colonoscopy 1973 Hepatitis C Screening 1973 Prostate Cancer Screening-PSA 1973 Hepatitis B Screening 1991 Regular Well Visit/Exam 18-64 1991 Pneumococcal vaccine <65 (1 of 2 - PCV) 1992 Zoster Vaccine (1 of 2) 1992 Covid-19 Vaccine (3 - Modern a risk series) 10/23/2021 09/25/2021, 08/27/2021 Depression Screening 05/12/2025 05/12/2024 Influenza Vaccine (#1) 2025 DTaP/Tdap/Td Vaccine (3 - Td or Tdap) 02/27/2033 02/27/2023, 09/03/2013, 12/01/2005 Procedures Procedure Name Priority Date/Time Associated Diagnosis Comments COMPREHENSIVE METABOLIC PANEL Routine 07/10/2025 CORTISOL, URINE, FREE Routine 05/25/2025 8:00 AM CDT Adrenal insufficiency after adrenalectomy VOLUME AND PERIOD, URINE, 24 HOUR Routine 05/25/2025 8:00 AM CDT Adrenal insufficiency after adrenalectomy CORTISOL, URINE, 24 HOUR Routine 05/25/2025 8:00 AM CDT Adrenal insufficiency after adrenalectomy T3, FREE Routine 05/18/2025 10:11 AM CDT Abnormal thyroid function test T4, FREE Routine 05/18/2025 10:11 AM CDT Abnormal thyroid function test TSH Routine 05/18/2025 10:11 AM CDT Abnormal thyroid function test from Last 3 Months Results * (ABNORMAL) Comprehensive metabolic panel (07/10/2025) SCRIBED Sodium 139 135 - 145 mmol/L EXTERNAL LAB SCRIBED Potassium 4.0 3.3 - 5.2 mmol/L EXTERNAL LAB SCRIBED Chloride 104 97 - 110 mmol/L EXTERNAL LAB SCRIBED Carbon Dioxide 0(A) 22 - 32 mmol/L EXTERNAL LAB Comment:no results SCRIBED Anion Gap 9.0 2 - 15 mmol/L EXTERNAL LAB SCRIBED Urea Nitrogen (BUN) 15 6 - 25 mg/dL EXTERNAL LAB SCRIBED Creatinine 0.8 0.80 - 1.30 mg/dL EXTERNAL LAB SCRIBED Glucose 89 70 - 199 mg/dL EXTERNAL LAB SCRIBED Calcium 9.0 8.5 - 10.3 mg/dL EXTERNAL LAB SCRIBED Bilirubin 0.4 0.1 - 1.2 mg/dL EXTERNAL LAB SCRIBED Plasma Protein 6.6 6.5 - 8.5 g/dL EXTERNAL LAB SCRIBED Albumin 4.1 3.5 - 5.0 g/dL EXTERNAL LAB SCRIBED Alkaline Phosphatase 61 40 - 130 Units/L EXTERNAL LAB SCRIBED Alanine Transaminase (ALT) 0(A) 7 - 55 Units/L EXTERNAL LAB Comment:no result SCRIBED Aspartate Transaminase (AST) 30 10 - 50 Units/L EXTERNAL LAB Blood us Historical Provider LAB BLOOD ORDERABLES Adriana rangel Result EXTERNAL LAB * Volume and period, urine, 24 hour (05/25/2025 8:00 AM CDT) Volume, ur 2,200 mL Period, Urine Collection 1,440 min [facility] Urine 05/25/2025 8:00 AM CDT 05/25/2025 2:26 PM CDT us James Stewart MD LAB URINE ORDERABLE S Final Result [facility] VILLALPANDO [address] [place] [address] * (ABNORMAL) Cortisol free urine 24 hour (05/25/2025 8:00 AM CDT) Cortisol, free, 24 hr, ur 101(H) 3.5 - 45 mcg/24H [facility] ref Lab Comment: Interpretive Data Testing performed by: [facility], [place] [address]. Urine 05/25/2025 8:00 AM CDT 05/25/2025 2:26 PM CDT James Stewart MD LAB URINE ORDERABLE S Final Result [facility] IRASEMA [address] [address] [place] [address] [facility] Lab * T3, free (05/18/2025 10:11 AM CDT) Free T3 2.3 2.0 - 4.4 pg/mL Blood 05/18/2025 10:1 1 AM CDT 05/18/2025 8:29 PM CDT James Stewart MD LAB BLOOD ORDERABLE S Final Result [facility] IRAS[facility] [address] [address] [facility] [place] [address] * TSH (05/18/2025 10:11 AM CDT) Thyroid Stimulating Hormone 3.15 0.30 - 4.20 mcIUnit/mL Blood 05/18/2025 10:1 1 AM CDT 05/18/2025 8:29 PM CDT James Stewart MD LAB BLOOD ORDERABLE S Final Result [facility] [place] [address] [address] Department [place] [address] * (ABNORMAL) T4, free (05/18/2025 10:11 AM CDT) Free T4 0.62(L) 0.90 - 1.70 ng/dL Blood 05/18/2025 10:1 1 AM CDT 05/18/2025 8:29 PM CDT James Stewart MD LAB BLOOD ORDERABLE S Final Result Performing Organization Address [facility]/ZIP Co de Phone Number [facility] VILL[facility]O [address] [address] Department [place] [address] from Last 3 Months Insurance [place] Care Teams Toolsmith Relationship Specialty Start Date End Date Felix Fong NP [address] [facility] [address] [place], [place] [phone] PCP - General Nurse Practitioner 02/07/24 Michael Arriaza MD [address] [place] [address] [place] [id number] Referring Physician Medical Oncology 05/21/24
--- OUTSIDE RECORDS SUMMARY | 2025-08-04 15:04 | XMS_ITS | Encounter Summary ---
Author Organization [facility] Healthcare Address [address] [place] [address] Care Team Providers Care Office Clin Asst Name Role Phone Felix Fong NP Primary Care Provider [phone] Michael Arriaza MD Unavailable [phone] Encounter Details Date Type Department Care Team (Latest Contact Info) Description 06/23/2025 Results Follow-Up [facility] [address] [place] [phone] [place] [id number] [place] [id number] Volume and period, urine, 24 hour, Cortisol free urine 24 hour Social History Tobacco Use Types Packs/Day Years Used Date Smoking Tobacco: Never PHQ-2 Answer Date Recorded PHQ-2 Total Score (If total score is 3 or more points, staff should administer the PHQ-9) 0 05/12/2024 Sex and Gender Information Value Date Recorded Sex Assigned at Not on file Legal Sex Male 2:21 AM RN ANTE PARTUM Gender Identity Not on file Sexual Orientation Not on file documented as of this encounter Plan of Treatment Not on file documented as of this encounter Visit Diagnoses Not on filedocumented in this encounter Care Teams Office Clin Asst Relationship Specialty Start Date End Date Felix Fong NP [address] [place] [address] PCP - General Nurse Practitioner 02/07/24 Michael Arriaza MD [address] [place] [address] [place] [address] Referring Physician Medical Oncology 05/21/24 documented as of this encounter
--- OUTSIDE RECORDS SUMMARY | 2025-08-04 15:04 | XMS_ITS | Encounter Summary ---
Author Organization [facility] Address [address] [place] [address] Phone Care Team Providers Care Executive Legal Secretary Name Role Phone Felix Fong APRN, RODRI Primary Care Provider Felix Fong APRN, CNP Unavailable [phone] Michael Arriaza MD Unavailable [phone] Moe Rooney MD Unavailable [phone] Michael Arriaza MD Unavailable [phone] Encounter Details Date Type Department Care Team (Late st Contact Info) Description 06/03/2025 Telephone [facility] [address] [place] [address] Michael Arriaza MD [address] [place] [phone] Social History Tobacco Use Types Packs/Day Years [...] on file documented as of this encounter Functional Status * Question Answer Date of Assessment Author Little interest or pleasure in doing things Not at all 06/04/2025 8:26 AM CDT Radha Nj RN Feeling down, depressed, or hopeless Not at all 06/04/2025 8:26 AM CDT Radha Nj RN * Over the past 2 weeks, how often have you been bothered by any of the following problems? Question Answer Date of Assessment Author Patient Health Questionnaire -2 Score 0 06/04/2025 8:26 AM CDT Radha Nj RN documented as of this encounter Miscellaneous Notes * Telephone Encounter - Ciera Ramirez RN - 06/03/2025 1:44 PM CDT CANOPY CALL: Pt is calling stating that he cancelled CT Scan due to lack of funds. Wanted to let Nurse know, will discuss tomorrow @ his appt- wants to try to get them done every 6 months so he can save up $$. No CB needed. FYI OV Tomorrow 06/04 documented in this encounter Plan of Treatment Upcoming Encounters Date Type Department Care Team (Late st Contact Info) Description 08/20/2025 8:30 AM CDT Office Visit [facility] [address] [address] Michael Arriaza MD [address] [place] [phone] documented as of this encounter Visit Diagnoses Not on filedocumented in this encounter Care Teams Executive Legal Secretary Relationship Specialty Start Date End Date Felix Fong APRN, TIMBER MANAGEMENT SPECIALIST PCP - General Adult Medicine 01/07/24 Felix Fong APRN, TIMBER MANAGEMENT SPECIALIST Adult Medicine 01/07/24 Michael Arriaza MD [address] [place] [phone] Consulting Physician Oncology 01/07/24 Moe Rooney MD [address] [address] Neuromuscular Medicine 01/07/24 Michael Arriaza MD [address] [address] Consulting Physician Oncology 01/04/24 documented as of this encounter
--- OUTSIDE RECORDS SUMMARY | 2025-08-04 15:04 | XMS_ITS | Clinical Summary ---
Author Organization [facility] Address [address], [address] [place] [address] Phone Care Team Providers Care Benzene Worker Name Role Phone Felix Fong APRN, GOGGLES ASSEMBLER Primary Care Provider Felix Fong APRN, RODRI Unavailable [phone] Michael Arriaza MD Unavailable [phone] Moe Rooney MD Unavailable [phone] Michael Arriaza MD Unavailable [phone] Allergies No known active allergies Medications montelukast (SINGULAIR) 10 MG Tablet Take 1 Tablet by mouth daily. 05/16/20 23 Active fluticasone (FLONASE) 50 MCG/ACT Suspension USE 2 SPRAY(S) IN EACH NOSTRIL ONCE DAILY 11/24/19 23 Active Podnzkbsyn-WHEX-F aff-Cod [id number] MG Capsule 09/20/20 22 Active MULTIPLE VITAMINS PO Take by mouth. Active hydrocortisone (CORTEF) 10 MG Tablet Take 1 Tablet by mouth 2 times daily. 180 Tablet 01/11/20 24 Active HYDROcodone-aceta minophen (NORCO) 5-325 MG Tablet Take 1 Tablet by mouth. 02/28/20 24 Active ondansetron (ZOFRAN) 4 MG Tablet Take 4 mg by mouth. 02/28/20 24 Active Ascorbic Acid (VITAMIN C PO) Take by mouth. gummies Active Cholecalciferol (VITAMIN D-3 PO) Take by mouth. gummies Active rosuvastatin (CRESTOR) 40 MG Tablet Take 40 mg by mouth nightly. 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 01/24/2024 Encounters Date Type Department Care Team Description 07/23/2025 9:30 AM CDT Office Visit [facility] [address] [address] Monica Villeda, INVENTORY ASSOCIATE, GOGGLES ASSEMBLER 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 (HCC) (Primary Dx) 07/23/2025 Travel 07/10/2025 Telephone [facility] [address] [phone] Michael Arriaza MD 07/08/2025 8:10 AM CDT Lab [facility] [address] [phone] Lab, Cc [facility] 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 (HCC) 07/08/2025 Travel 07/08/2025 Refill [facility] [address] [phone] Michael Arriaza MD Medication Refill 07/07/2025 Telephone [facility] [address] [phone] Michael Arriaza MD 06/04/2025 9:30 AM CDT Lab [facility] [address] [place] [phone] Nurse, Man [facility] 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 (HCC) 06/04/2025 8:30 AM CDT Office Visit [facility] [address] [place] [phone] Michael Arriaza MD 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 (HCC) (Primary Dx) 06/04/2025 Travel 06/03/2025 Telephone [facility] [address] [phone] Michael Arriaza MD 06/03/2025 Telephone [facility] [address] [phone] Michael Arriaza MD 05/21/2025 Telephone [facility] [address] [phone] Michael Arriaza MD canopy call / work note from Last 3 Months Family History Relation Name Status Comments Brother Alive Child 1 Alive Child 2 Alive Child 3 Alive Father Mother Alive Social History Tobacco Use Types Packs/Day Years Used Date Smoking Tobacco: Never Smokeless Tobacco: Never Tobacco Cessation:Counseling Given: Not Answered Alcohol Use Standard Drinks/Week Comments Never 0 (1 standard drink = 0.6 oz pur e alcohol) Sex and Gender Information Value Date Recorded Sex Assigned at Not on file Legal Sex Male 9:20 PM CDT Gender Identity Not on file Sexual Orientation Not on file Last Filed Vital Signs Vital Sign Reading Time Taken Comments Blood Pressure 120/80 07/23/2025 9:24 AM CDT Pulse 73 07/23/2025 9:24 AM CDT Temperature 36.6 C (97.9 F) 07/23/2025 9:24 AM CDT Respiratory Rate 16 07/23/2025 9:24 AM CDT Oxygen Saturation 98% 07/23/2025 9:24 AM CDT Inhaled Oxygen Concentration - - Weight 78.8 kg (173 lb 12.8 oz) 07/23/2025 9:24 AM CDT Height 190.5 cm (6' 3) 07/23/2025 9:24 AM CDT Body Mass Index 21.72 07/23/2025 9:24 AM CDT Plan of Treatment Upcoming Encounters Date Type Department Care Team (Late st Contact Info) Description 08/20/2025 8:30 AM CDT Office Visit [facility] [address] [phone] Michael Arriaza MD [address] [place] [phone] Health Maintenance Due Date Last Done Comments Hepatitis B Immunization (1 of 3 - 19+ 3-dose series) 1992 Pneumococcal Immunization (50+ years) (1 of 2 - PCV) 1992 Zoster Immunization (1 of 2) 1992 Cologuard 2018 Colonoscopy 2018 Colorectal Cancer Screening 2018 Immunochemical Fecal Occult Blood 2018 SARS-COV-2 Immunization (2 - Moderna risk series) 10/23/2021 09/25/2021, 09/25/2021, 08/27/2021 Influenza Immunization (#1) 2025 Respiratory Syncytial Virus (RSV) Immunization (Adult) (1 - 1-dose 75+ series) 2048 DTaP/Tdap/Td Immunization Discontinued 2022, 09/03/2013, 12/01/2005, Additional history exists TdaP Immunization Completed 02/27/2023, 09/03/2013 Hepatitis C Virus (HCV) Screening Completed 06/11/2023 Human Papillomavirus (HPV) Immunization Aged Out No longer eligible based on patient's age to complete this topic Meningococcal Immunization (ACWY) Aged Out No longer eligible based on patient's age to complete this topic Rotavirus Immunization Aged Out No lo nger eligible based on patient's age to complete this topic Procedures Procedure Name Priority Date/Time Associated Diagnosis Comments MISCELLANEOUS TEST (NOT FOR [facility]) Routine 07/08/2025 7:47 AM CDT 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 (HCC) CBC WITH AUTO DIFF [place] Routine 07/08/2025 7:46 AM CDT CMP (COMPREHENSIVE METABOLIC PANEL) Routine 07/08/2025 7:46 AM CDT 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 (HCC) LACTATE DEHYDROGENASE (LD) Routine 07/08/2025 7:46 AM CDT 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 [facility] TEST Final Result Received. See Scanned Document either attached to this document or under Media Tab. [facility] Other 07/08/2025 7:47 AM CDT Narrative [facility] - 07/15/2025 8:53 AM CDT Release to patient->Immediate What is the test to be performed?->mitotane level PLEASE LIST TEST NAME ONLY FOR DUE WEST: (THIS ORDER IS ONLY TO BE USED FOR TESTS THAT ARE NOT SENT TO [facility].) PLEASE LIST SAMPLE TYPE TO DRAW BY CHECKING WITH SPECIFIC PERFORMING LABORATORY WEB SITE. PLEASE LIST TEST NAME, ORDER NUMBER, AND LABORATORY THAT PERFORMS THE TEST. FOR [facility] FACILITIES: Monica Villeda APRN, GOGGLES ASSEMBLER LAB SEND OUTS Final Result [facility] [place] [address], [place] [phone] * (ABNORMAL) CBC WITH AUTO DIFF [place] (07/08/2025 7:46 AM CDT) Only the most recent of2 resultswithin the time period is included. WBC 4.1 4.0 - 10.0 10*3/uL [facility] HGB 14.5 13.7 - 17.5 g/dL [facility] HCT 42.7 40.1 - 51.0 % [facility] PLT 165 163 - 369 10*3/uL [facility] MPV 9.0(L) 9.4 - 12.4 fL [facility] RBC 4.54(L) 4.63 - 6.08 10*6/uL [facility] MCV 94 79 - 95 fL [facility] MCH 31.9 25.6 - 32.2 pg [facility] MCHC 34.0 32.2 - 36.5 g/dL [facility] RDW 13.0 11.6 - 14.4 % [facility] Neutrophils % 53.9 36.0 - 66.0 % [facility] Lymphocytes % 37.4 19.0 - 40.0 % [facility] Monocytes % 5.1 4.1 - 12.1 % [facility] Eosinophils % 2.7 0.0 - 3.5 % [facility] Basophils % 0.7 0.0 - 1.0 % [facility] Absolute Neutrophils 2.2 1.4 - 6.6 10*3/uL [facility] Absolute Lymphocytes 1.6 0.8 - 4.0 10*3/uL [facility] Absolute Monocytes 0.2 0.2 - 1.2 10*3/uL [facility] Absolute Eosinophils 0.1 0.0 - 0.4 10*3/uL [facility] Absolute Basophils 0.0 0.0 - 0.1 10*3/uL [facility] 07/08/2025 7:46 AM CDT Monica Villeda APRN, RODRI LAB SEND OUTS Final Result Performing Organization Address [facility]/ZIP Co de Phone Number [facility] [place] [address], [place] [phone] * (ABNORMAL) LACTATE DEHYDROGENASE (LD) (07/08/2025 7:46 AM CDT) Only the most recent of2 resultswithin the time period is included. LDH 112(L) 140 - 271 U/L [facility] Blood 07/08/2025 7:46 AM CDT Narrative [facility] - 07/08/2025 8:47 AM CDT Release to patient->Immediate Monica Villeda APRN, GOGGLES ASSEMBLER CHEMISTRY ORDERABLES Final Result Performing Organization Address [facility] Co de Phone Number [facility] [place] [address], [place] [phone] * CMP (COMPREHENSIVE METABOLIC PANEL) (07/08/2025 7:46 AM CDT) Only the most recent of2 resultswithin the time period is included. Glucose 89 70 - 105 mg/dL [facility] Blood Urea Nitrogen 15 7 - 25 mg/dL [facility] Creatinine 0.8 0.7 - 1.3 mg/dL [facility] Sodium 139 136 - 145 mEq/L [facility] Potassium 4.0 3.5 - 5.1 mEq/L [facility] Chloride 104 98 - 107 mEq/L [facility] Bicarbonate 30 21 - 31 mEq/L [facility] Total Bilirubin 0.4 0.3 - 1.0 mg/dL [facility] Alk. Phosphatase 61 34 - 104 U/L [facility] Aspartate Aminotransferase 30 13 - 39 U/L [facility] Alanine Aminotransferase 31 7 - 52 U/L [facility] Total Protein 6.6 6.4 - 8.9 g/dL [facility] Albumin 4.1 3.5 - 5.7 g/dL [facility] Calcium 9.0 8.6 - 10.3 mg/dL [facility] Anion Gap 9.0 7.0 - 15.0 mEq/L [facility] Globulin 2.5 2.0 - 3.5 g/dL [facility] EGFR 107 >60 ml/min/1. 73m2 [facility] Comment: This eGFR is calculated using 2020 CKD-EPI Creatinine equation without race modifier based on the NKF-ASN task force recommendations Equation: sEMS=371*min(SCr/k,1)a*max(SCr/k,1)-1.200*0.9938Age*1.012 (if female), where SCr is serum creatinine, k is 0.7 for females and 0.9 for males, and a is -0.241 for females and -0.302 for males Blood 07/08/2025 7:46 AM CDT Narrative [facility] - 07/08/2025 8:47 AM CDT Release to patient->Immediate IS THE PATIENT REQUIRED TO BE FASTING FOR 8 HOURS?->No Monica Villeda APRN, GOGGLES ASSEMBLER CHEMISTRY ORDERABLES Final Result [facility] [place] [address], from Last 3 Months Insurance [facility] Care Teams Benzene Worker Relationship Specialty Start Date End Date Felix Fong APRN, RODRI PCP - General Adult Medicine 01/07/24 Felix Fong APRN, CNP Adult Medicine 01/07/24 Michael Arriaza MD [address] [place] [phone] Consulting Physician Oncology 01/07/24 Moe Rooney MD [address] [facility] [address] [place], [place] [id number] Neuromuscular Medicine 01/07/24 Michael Arriaza MD [address] [facility] [address] [place] [address] Consulting Physician Oncology 01/04/24
--- OUTSIDE RECORDS SUMMARY | 2025-08-04 15:04 | XMS_ITS | Clinical Summary ---
Author Organization [facility] Address [address] [place] [phone] Phone Care Team Providers Care Emt B Name Role Phone Jayson Paul MD Primary Care Provider [phone] Allergies No known active allergies Medications albuterol (PROVENTIL,VENTOL IN) 0.63 mg/3 mL Solution for Nebulization Take 0.63 mg by inhalation one time only. Active fluticasone propionate (FLONASE) 50 mcg/spray [place], Suspension nasal inhaler Administer 2 Sprays in [...] drink = 0.6 oz pur e alcohol) Feeling Safe Answer Date Recorded Are you in a relationship wi th someone who hurts you emotionally and/or physically? No 02/27/2023 Sex and Gender Information Value Date Recorded [...] (2 - Td or Tdap) 02/27/2033 Insurance BLUE ACCESS/TRUE BLUE PPO Care Teams Emt B Relationship Specialty Start Date End Date Jayson Paul MD PCP - General Internal Medicine 02/27/23
[2025-08-04 15:32] LABS: Prostate Specific Antigen 0.9 ng/mL (< OR = 4.0)
== END 2025-08-04 14:08 | disposition home or self-care (01) ==
PROVIDERS: PCP Nurse Practitioner; Visit Provider Nurse Practitioner
DX: E78.5 Hyperlipidemia, unspecified (principal); Z12.5 Encounter for screening for malignant neoplasm of prostate
CPT/HCPCS: 36415; 80053; 80061; 84153; G0103